=== PATIENT | female | born 1945 | race Caucasian/White ===

== ENCOUNTER 2016-10-13 08:46 | Outpatient (CLI) | payer MEDICARE ==
[2016-03-16 19:53] VITALS: BP 121/69
== END 2016-10-13 08:47 ==
LOC: OUT 08:46
PROVIDERS: ATTEND Colon & Rectal Surgery
DX: R10.9 Unspecified abdominal pain (principal)
CPT/HCPCS: 99213; G0463

== ENCOUNTER 2016-12-01 13:03 | Outpatient (CLI) | payer MEDICARE ==
[2016-03-16 19:53] VITALS: BP 121/69
--- NOTE | 2016-12-01 18:57 | Diagnostic Imaging Report ---
BIBI MADERA [facility] [address] [facility] [address] [place] [address]. [address] Report Submission Date: Dec 01, 2016 3:31:03 PM CDT Patient Study Name: TIMOTHY LOCKETT Date: Dec 01, 2016 1:15:05 PM CDT Modality Type: CR Gender: F Description: LOWER EXTREMITY : 41 Institution: [facility] Physician: BIBI MADERA AP and lateral views of both knees- 5 total views History: BILATERAL KNEES, PAIN, HX OF ARTHRITIS, HAS BEEN GETTING INJECTIONS IN KNEE X4 YEARS Findings: No similar comparison studies Right knee: Tricompartmental degenerative changes with narrowing of the medial joint space, no suprapatellar effusion Left knee: There is tricompartmental degenerative change with narrowing of the medial knee joint space, no suprapatellar effusion Impression: Advanced bilateral knee tricompartmental degenerative change, no suprapatellar effusion Electronically signed on Dec 01, 2016 3:31:03 PM CDT by: Radha MAYS
== END 2016-12-01 13:04 ==
LOC: RAD 13:03
PROVIDERS: ATTEND Family Medicine
DX: M25.569 Pain in unspecified knee (principal)

== ENCOUNTER 2016-12-12 13:50 | Outpatient (CLI) | payer MEDICARE ==
[2016-03-16 19:53] VITALS: BP 121/69
== END 2016-12-12 13:52 ==
LOC: LAB 13:50
PROVIDERS: ATTEND Family Medicine
DX: R30.0 Dysuria (principal)
CPT/HCPCS: 87086

== ENCOUNTER 2017-02-13 10:59 | Outpatient (CLI) | payer MEDICARE ==
[2016-03-16 19:53] VITALS: BP 121/69
[2017-02-13 11:12] LABS: BASOPHILS % 0.7 (0.0-1.5); EOSINOPHILS % 0.5 % (0.0-6.8); MEAN CORPUSCULAR HEMOGLOBIN 30.3 pg (28.0-34.0); MEAN CORPUSCULAR VOLUME 87.6 fl (80.0-100.0); MONOCYTES % 3.2 % (0.0-11.0); NEUTROPHILS # 4.4 # k/uL (1.4-7.7)
[2017-02-13 11:38] LABS: eGFR (African) > 60; eGFR (Non-African) > 60
== END 2017-02-13 11:00 ==
LOC: LAB 10:59
PROVIDERS: ATTEND Family Medicine
DX: E55.9 Vitamin D deficiency, unspecified (principal); R53.83 Other fatigue; M79.1 Myalgia; R73.9 Hyperglycemia, unspecified
CPT/HCPCS: 36415; 80053; 82306; 82550; 83036; 84443; 85025; 85651

== ENCOUNTER 2017-03-24 13:18 | Outpatient (CLI) | payer MEDICARE ==
[2016-03-16 19:53] VITALS: BP 121/69
== END 2017-03-24 13:20 ==
LOC: LABRHC 13:18
PROVIDERS: ATTEND Physician Assistant
DX: Z53.9 Procedure and treatment not carried out, unspecified reason (principal)

== ENCOUNTER 2017-05-09 10:47 | Outpatient (CLI) | payer MEDICARE ==
[2016-03-16 19:53] VITALS: BP 121/69
[2017-05-09 11:11] LABS: BASOPHILS % 0.9 (0.0-1.5); MEAN CORPUSCULAR HEMOGLOBIN 29.4 pg (28.0-34.0); MEAN CORPUSCULAR VOLUME 85.7 fl (80.0-100.0); MONOCYTES % 4.8 % (0.0-11.0); NEUTROPHILS # 4.3 # k/uL (1.4-7.7)
[2017-05-09 11:32] LABS: eGFR (African) > 60; eGFR (Non-African) > 60
--- NOTE | 2017-05-09 15:37 | Diagnostic Imaging Report ---
BIBI MADERA [facility] [address] [facility] [address] [address] Report Submission Date: May 09, 2017 1:05:08 PM CDT Patient Study Name: TIMOTHY LOCKETT Date: May 09, 2017 11:29:08 AM CDT Modality Type: CR Gender: F Description: SPINE : 41 Institution: [facility] Physician: BIBI MADERA Sacrum and coccyx 3 views Clinical history: Low back pain No visible fracture, dislocation or bone destruction. Impression: Normal sacrum and coccyx Electronically signed on May 09, 2017 1:05:08 PM CDT by: Franklin MAYS
--- NOTE | 2017-05-09 15:38 | Diagnostic Imaging Report ---
BIBI MADERA [facility] [address] [facility] [address] [address] Report Submission Date: May 09, 2017 1:10:17 PM CDT Patient Study Name: TIMOTHY LOCKETT Date: May 09, 2017 11:27:43 AM CDT Modality Type: CR Gender: F Description: SPINE : 41 Institution: [facility] Physician: BIBI MADERA Lumbar spine 3 views Clinical history: Low back pain Mild to moderate osteoarthrosis of the lumbar spine with grade I anterior spondylolisthesis of L4/L5 with degenerative disc and L5/S1. No visible fracture, dislocation or bone destruction. Mild levoscoliosis is noted. Impression: Moderate osteoarthrosis of the lumbar spine with degenerative disc and L5/S1 . Grade I anterior spondylolisthesis of L4/L5 . Levoscoliosis without visible fractures Electronically signed on May 09, 2017 1:10:17 PM CDT by: Franklin MAYS
--- NOTE | 2017-05-09 15:39 | Diagnostic Imaging Report ---
BIBI MADERA [facility] [address] [facility] [address] [address] Report Submission Date: May 09, 2017 1:04:29 PM CDT Patient Study Name: TIMOTHY LOCKETT Date: May 09, 2017 11:21:43 AM CDT Modality Type: CR Gender: F Description: CHEST : 41 Institution: [facility] Physician: BIBI MADERA Examination: PA and lateral chest. History: Evaluate lung daniels. Comparison exam: None available Findings: PA lateral chest demonstrate a normal cardiac and mediastinal silhouette. Minimal tortuosity of the thoracic aorta. Mildly chronic interstitial pattern. No focal infiltrate. No effusion. No blunting of the costophrenic margins. Osseous structures are appropriate for age. Lateral view demonstrates kyphosis. Impression: Mild chronic changes. No acute pulmonary process. Electronically signed on May 09, 2017 1:04:29 PM CDT by: Rober MAYS
== END 2017-05-09 10:50 ==
LOC: RT 10:47
PROVIDERS: ATTEND Family Medicine
DX: R07.89 Other chest pain (principal); M53.3 Sacrococcygeal disorders, not elsewhere classified; G89.29 Other chronic pain; M54.41 Lumbago with sciatica, right side; M54.42 Lumbago with sciatica, left side; E55.9 Vitamin D deficiency, unspecified
CPT/HCPCS: 36415; 71020; 72100; 72220; 80053; 82306; 82550; 84484; 85025

== ENCOUNTER 2017-05-23 14:01 | Outpatient (CLI) | payer MEDICARE ==
[2016-03-16 19:53] VITALS: BP 121/69
== END 2017-05-23 14:02 ==
LOC: POD 14:01
PROVIDERS: ATTEND Podiatrist
DX: M77.42 Metatarsalgia, left foot (principal); M81.0 Age-related osteoporosis without current pathological fracture
CPT/HCPCS: G0463

== ENCOUNTER 2017-06-26 12:45 | Outpatient (CLI) | payer MEDICARE ==
[2016-03-16 19:53] VITALS: BP 121/69
[~2017-06-26 12:45] MED LIST: 0.9 % SODIUM CHLORIDE PF 10 ML VIAL IJ ONE; Lidocaine 1% 5ml(IM or SUTURE)(PAIN CLINIC) ONE; TRIAMCINOLONE ACETONID 40MG/ML VIAL ONE
--- NOTE | 2017-06-27 12:33 | HISTORY AND PHYSICAL REPORT ---
REFERRING PHYSICIAN: Dr. Scarlett Pantoja: HISTORY OF PRESENT ILLNESS: I had the opportunity of seeing Vasiliy Gillespie today as and outpatient at [facility]. Vasiliy is a delightful 71-year-old white female who presents with back and bilateral lower extremity pain and weakness which began in March of 2017. She says that she has very little symptoms when she is sitting or lying down. She develops back pain and bilateral lower extremity pain with standing and walking. She is limited to about 50 feet. She is 71 and still actively works and is now becoming limited by the symptoms consistent with neurogenic claudication. She rates this pain as severe as 8 over 10 on a visual analog scale and never better than 2 over 10 on a visual analog scale. She takes very little in the way of oral analgesics. PAST MEDICAL HISTORY: 1. Vision problems. 2. Hypertension. 3. Irregular fast heartbeats. 4. Uterine cancer. 5. Anxiety problems. 6. Questionable Parkinson disease. 7. Early stages of macular degeneration. 8. Osteoarthritis. 9. IBS. 10. Low back pain. 11. Chronic left ankle pain. PAST SURGICAL HISTORY: 1. Cholecystectomy. 2. Appendectomy. 3. Colon resection. 4. Hysterectomy. 5. Bilateral cataracts removed and lens implanted. SOCIAL HISTORY: She has been a since 2011. She has 3 children. She lives at home alone. She completed the 12th grade. 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 She is not disabled. FAMILY HISTORY: Father with heart disease. Mother with heart disease, cancer, and thyroid disease. REVIEW OF SYSTEMS: In the last month or so, she reports a hoarse voice, irregular fast heartbeats, stomach pain or upset stomach, constipation, and feeling anxious. Pain is worsened with bending over, getting up from a chair, and in any position for too long, and prolonged sitting, start-up symptoms with walking. Pain is improved with standing and heat. PHYSICAL EXAMINATION: General: This is a well-nourished, well-developed white female in no apparent distress. Vital Signs: BP: 115/80, P: 66, R: 20, oxygen saturation is 98% on room air. General: The patient is well nourished, well developed, and in no apparent distress. Awake, alert, and oriented. HEENT: Pupils are equal, round, and reactive to light and accommodation. Extraocular movements intact. No facial droop. Neck: There is full range of motion of the cervical spine. No evidence of adenopathy. Thyroid is nontender, no enlarged. Carotids are without bruits. Chest: Clear to auscultation bilaterally. Normal chest excursion. Heart: Regular rate and rhythm without murmur. Abdomen: Benign. Normoactive bowel sounds. Motor/sensory: Intact in the upper and lower extremities. Moves all extremities freely. Extremities: Strength is 5/5 and equal in the lower extremities. Negative straight leg raise. Negative femoral nerve stretch. Negative SRIDHAR. Negative assisted extension and extension rotation. DIAGNOSTIC STUDIES: MRI dated May 13, 2017, reveals grade 1 L4-L5 spondylolisthesis with exposed disk material and facet and ligamentum flavum hypertrophy at the L4-L5 level resulting in severe spinal stenosis somewhat worse on the left. There may be a cyst associated with the ligamentum flavum hypertrophy. I see no sequestered disk. ASSESSMENT: Severe L4-L5 spinal stenosis associated with posterior facet ligamentum flavum hypertrophy and grade 1 spondylolisthesis. PLAN: Plan for an L5-S1 epidural steroid injection today under fluoroscopy. cc: Dr. Scarlett MAYS
--- NOTE | 2017-06-27 12:39 | LESI WITH FLUORO ---
OPERATIVE PROCEDURE: Left L5-S1 epidural steroid injection with fluoroscopic guidance. DESCRIPTION OF PROCEDURE: The risks and benefits were discussed with the patient including the risk of infection, bleeding, nerve injury, and headache, as well as the risks of steroid exposure causing hyperglycemia, hypertension, osteoporosis, or increased infectious risks. The patient understood these risks and agreed to proceed. Consent was obtained prior to the procedure. The patient was placed in the prone position on the fluoroscopy table with a pillow underneath the abdomen to afford anterior flexion of the lumbar spine. The low back was cleaned and a sterile drape was applied. An 18-gauge thin wall Tuohy epidural needle was advanced with normal saline loss of resistance technique and direct fluoroscopic guidance with a left paramedian approach at the L5-S1 level. On obtaining loss of resistance to normal saline, it was verified that there was no aspiration of CSF or blood. Furthermore, the needle tip location was verified with lateral and AP fluoroscopic views. Omnipaque 240 myelogram dye were injected through the epidural needle. The distribution of the dye was noted to be within the desired distribution within the lumbar epidural space. The medication was injected into the epidural space. The stylet was replaced in the needle and the needle was removed from the back. The patient tolerated the procedure well. The back was cleaned and a bandage was applied over the injection site. The patient was monitored for 20 minutes following the procedure. During this time, the vital signs remained stable and the patient experienced no adverse sequelae. The patient was discharged in good condition. ASSESSMENT: Severe L4-L5 spinal stenosis associated with posterior facet ligamentum flavum hypertrophy and grade 1 spondylolisthesis. PLAN: Left L5-S1 epidural steroid injection with fluoroscopic guidance today. FOLLOWUP: Return to clinic if problems develop or worsen. cc: Dr. Scarlett MAYS
== END 2017-06-26 12:46 ==
LOC: OUT 12:45
PROVIDERS: ATTEND Anesthesiology Pain Medicine
DX: M48.061 Spinal stenosis, lumbar region without neurogenic claudication (principal); M24.28 Disorder of ligament, vertebrae; M43.16 Spondylolisthesis, lumbar region
CPT/HCPCS: J3301; Q9966; 62323; 99214; G0463

== ENCOUNTER 2017-07-17 16:39 | Outpatient (CLI) | payer MEDICARE ==
[2016-03-16 19:53] VITALS: BP 121/69
[2017-07-17 16:54] LABS: APPEARANCE,URINE Clear (CLEAR); COLOR,URINE Yellow (YELLOW); OCCULT BLOOD,URINE Trace-intact (NEGATIVE); UROBILINOGEN URINE 0.2 Eu (0.2-1.0)
[2017-07-17 17:01] LABS: AMORPHOUS SEDIMENT,UR FEW (NEGATIVE)
== END 2017-07-17 16:50 ==
LOC: LAB 16:39
PROVIDERS: ATTEND Family Medicine
DX: R30.0 Dysuria (principal)
CPT/HCPCS: 81002

== ENCOUNTER 2017-09-11 12:40 | Emergency (ER) | payer MEDICARE ==
--- NOTE | 2017-09-11 12:46 | ED Physician Documentation ---
General Adult - HISTORIAN Historian: patient, child - HPI Stated Complaint: palpatations Chief Complaint: Palpitations Onset: other ("a long time" ) Timing: other (intermittent ) Further Comments: yes (She states she has these feeling that her heart is beating "funny and or fast" she reprots this comes with various times of day but usually when she is hungry, tired and or anxious. She does take lorazepam but she did not know this am if she took her lorazepam or asprin so she did not repeat the med she did not know for sure if she took the med or not. She states she also has low back pain this is chronic and she does see pain managment for this pain but she states her lower back pain is increased today . No loss of control of bowel or bladder.) Last known Well Code/Unknown Code: Unknown - ROS CONST: denies: fever CVS/RESP: denies: chest pain, shortness of breath GI/: denies: none MS/SKIN/LYMPH: denies: none NEURO/PSYCH: anxiety. denies: headache, dizziness - PAST HX Past History: hypertension, other (anxiety ) Surgeries/Procedures: cholecystectomy, other (Colon recection and appy ) Immunizations: referred to PCP Allergies/Adverse Reactions: Allergies Allergy/AdvReac Type Severity Reaction Status Date / Time iodine [Iodine] Allergy Intermediate Verified 09/11/17 13:17 cephalexin monohydrate Allergy Mild Verified 09/11/17 13:17 [From Keflex] codeine phosphate Allergy Mild Verified 09/11/17 13:17 [From Robitussin A-C] guaifenesin Allergy Mild Verified 09/11/17 13:17 [From Robitussin A-C] hydrocortisone Allergy Mild Verified 09/11/17 13:17 [From Cortizone-10] Penicillins Allergy Mild Rash Verified 09/11/17 13:17 Home Medications: Ambulatory Orders Medication Instructions Recorded Carbidopa/Levodopa [Sinemet] 1 each PO TID u2 12/30/14 Aspirin [Adult Low Dose Aspirin EC] 81 mg PO D 03/16/16 Lisinopril [Lisinopril] 2.5 mg PO D 03/16/16 Cholecalciferol [Vitamin D-3] 2,000 unit PO DAILY 09/11/17 - SOCIAL HX Smoking History: non-smoker Alcohol Use: none Drug Use: none - FAMILY HX Family History: No - VITAL SIGNS Vital Signs: Vital Signs Temp Pulse Resp BP Pulse Ox 121/69 03/16/16 19:47 - REVIEWED ASSESSMENTS Nursing Assessment Reviewed: Yes Vitals Reviewed: Yes Progress - Progress Progress: 1355: Discussed results with daughter and pt. She states at times she has pain and referred to her epigastric area. Pain with palpation on that area. She states this has been an issue "forever" . She reports that she is anxious. Discussed she can repeat lorazepam if needed. DG ED Results Lab/Radiology - Radiology Radiology Impressions: Examination: Plain film lumbar spine History: Back discomfort. Findings: 3 views of the lumbar spine demonstrates osteopenia. Osteophytes. No compression deformity. L4/L5 listhesis. L5-S1 disc space narrowing. Facet degenerative changes. Prevertebral surgical clips. Impression: Osteopenia, listhesis, and degenerative changes. No compression deformity. Electronically signed on Sep 11, 2017 1:50:07 PM SU[employer]OR [employer] by: Rober Reyez General Adult Physical Exam - PHYSICAL EXAM GENERAL APPEARANCE: no distress EENT: eye inspection normal RESPIRATORY: no resp distress, chest non-tender, breath sounds normal CVS: reg rate & rhythm, heart sounds normal, equal pulses, no murmur ABDOMEN: soft, normal bowel sounds BACK: normal inspection, no CVA tenderness SKIN: warm/dry, normal color EXTREMITIES: non-tender, normal range of motion, no evidence of injury, no edema NEURO: oriented X3, CN's nml as tested, motor nml Discharge Clincal Impression: Anxiety Referrals: Scarlett Moreno MD [Primary Care Provider] - 2 Days Comments: Follow up with PCP - possible Holter Monitor Continue meds Ranitidine 150 mg BID Return to ER or PCP for any concerning symptoms Condition: Stable Decision to Admit: NO Date of Decison to Admit: 09/11/17 Decision Time: 14:03
[2017-09-11 13:19] LABS: BASOPHILS % 0.4 (0.0-1.5); EOSINOPHILS % 0.4 % (0.0-6.8); MEAN CORPUSCULAR HEMOGLOBIN 31.1 pg (28.0-34.0); MEAN CORPUSCULAR VOLUME 87.7 fl (80.0-100.0); MONOCYTES % 4.9 % (0.0-11.0); NEUTROPHILS # 4.9 # k/uL (1.4-7.7)
[2017-09-11 13:28] LABS: eGFR (African) > 60; eGFR (Non-African) > 60
--- NOTE | 2017-09-11 14:02 | Diagnostic Imaging Report ---
ARIS DAMON [facility] [address] [facility] [address] [address] Report Submission Date: Sep 11, 2017 1:50:07 PM OPTICAL ADVISOR Patient Study Name: TIMOTHY LOCKETT Date: Sep 11, 2017 1:33:04 PM OPTICAL ADVISOR Modality Type: CR Gender: F Description: SPINE : 41 Institution: [facility] Physician: ARIS DAMON Examination: Plain film lumbar spine History: Back discomfort. Findings: 3 views of the lumbar spine demonstrates osteopenia. Osteophytes. No compression deformity. L4/L5 listhesis. L5-S1 disc space narrowing. Facet degenerative changes. Prevertebral surgical clips. Impression: Osteopenia, listhesis, and degenerative changes. No compression deformity. Electronically signed on Sep 11, 2017 1:50:07 PM OPTICAL ADVISOR by: Rober MAYS
[2017-09-11 14:21] VITALS: BP 134/67
== END 2017-09-11 14:20 ==
LOC: ED 12:40
DX: F41.9 Anxiety disorder, unspecified (principal)
CPT/HCPCS: 72100; 80053; 84484; 85025; 99283; S1016

== ENCOUNTER 2017-09-20 08:51 | Outpatient (CLI) | payer MEDICARE ==
--- NOTE | 2017-09-20 11:17 | Diagnostic Imaging Report ---
LEODAN BARRETT [facility] [address] [facility] [address] [address] Report Submission Date: Sep 20, 2017 9:32:23 AM BED MAKER Patient Study Name: TIMOTHY LOCKETT Date: Sep 20, 2017 9:03:22 AM BED MAKER Modality Type: US Gender: F Description: US RETROPERITONEAL LIMIT : 41 Institution: [facility] Physician: LEODAN BARRETT Examination: Ultrasound kidneys History: Renal cyst. Comparison exams: None available. Findings: Right kidney measures 10.3 cm in length. Left kidney measures 10.5 cm in length. Thinned renal cortical margins bilaterally. No evidence for cortical mass. Projecting off the inferior margin of the left kidney is a cystic area measuring 3.3 x 3.0 x 2.3 cm. No hydronephrosis. Impression: Thinned renal cortical margins consistent with age related medical renal disease. No cortical mass or obstruction. Left renal cyst. Electronically signed on Sep 20, 2017 9:32:23 AM BED MAKER by: Rober MAYS
== END 2017-09-20 08:52 ==
LOC: RAD 08:51
PROVIDERS: ATTEND Nurse Practitioner Family
DX: N28.1 Cyst of kidney, acquired (principal)
CPT/HCPCS: 76775

== ENCOUNTER 2017-09-22 11:52 | Outpatient (CLI) | payer MEDICARE | END 2017-09-22 11:53 | LOC: RT 11:52 | PROVIDERS: ATTEND Family Medicine | DX: R00.2 Palpitations (principal) | CPT/HCPCS: 93225 ==

== ENCOUNTER 2017-10-17 14:34 | Outpatient (CLI) | payer MEDICARE | END 2017-10-17 14:35 | LOC: LAB 14:34 | PROVIDERS: ATTEND Obstetrics & Gynecology Gynecologic Oncology | DX: Z85.43 Personal history of malignant neoplasm of ovary (principal) | CPT/HCPCS: 86304 ==

== ENCOUNTER 2017-10-24 09:24 | Outpatient (CLI) | payer MEDICARE ==
[2017-10-24 09:39] LABS: APPEARANCE,URINE Clear (CLEAR); COLOR,URINE Yellow (YELLOW); OCCULT BLOOD,URINE 2+ (NEGATIVE); UROBILINOGEN URINE 0.2 Eu (0.2-1.0)
[2017-10-24 09:48] LABS: AMORPHOUS SEDIMENT,UR FEW (NEGATIVE)
== END 2017-10-24 09:25 ==
LOC: LAB 09:24
PROVIDERS: ATTEND Obstetrics & Gynecology Gynecologic Oncology
DX: R30.0 Dysuria (principal)
CPT/HCPCS: 81002; 87086; 87186

== ENCOUNTER 2017-11-14 13:48 | Inpatient (IN) | payer MEDICARE ==
[2017-11-14 14:14] VITALS: BMI 26.0
[2017-11-14] MEDS ORDERED: HYPROMELLOSE OP PRN (15:52)
[2017-11-14] MEDS ORDERED: BISACODYL 5 MG TABLET.DR PO PRN (15:55)
[2017-11-14] MEDS ORDERED: HYPROMELLOSE OPTH DROPS OP PRN (15:55)
[2017-11-14] MEDS ORDERED: LORazepam 0.5 MG TABLET PO SCH (16:00)
[2017-11-14] MEDS: ENOXAPARIN SODIUM 40 MG/0.4 ML DISP.SYRIN SQ SCH (16:34)
[2017-11-14] MEDS: FAMOTIDINE 20 MG TABLET PO SCH (16:34)
[2017-11-14] MEDS: traMADol HCL 50 MG TABLET PO PRN ×2 (16:34→23:08)
[2017-11-14] MEDS ORDERED: DICYCLOMINE HCL 10 MG PO SCH (17:00)
[2017-11-14] MEDS: ACETAMINOPHEN 325 MG TABLET PO SCH (17:45)
--- NOTE | 2017-11-14 20:34 | History and Physical Report ---
History of Present Illnes - History of Present Illness Reason for Visit: Weakness History of Present Illness: Patient was trying on pants on 11-09-17 when her foot got stuck in the pants and she fell. She suffered a closed fracture of the left superior pubic rami. She was admitted to [facility]. Evaluation by Dr. Boyd in orthopedics and surgery deemed not necessary. Narcotics have caused her to have confusion and hallucination. She is currently using tylenol for pain with tramadol sparingly for breakthrough pain. She was too weak and unable to return home. 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: Other (Parkinsonism - 2017) Gastrointestinal: GERD, Other (Colon polyps) Heme/Onc: Cancer (Uterine 1B) Psych: Anxiety, Depression - Past Surgical History Past Surgical History: Appendectomy, Cholecystectomy, Hysterectomy (with BSO), Other (Colectomy 2003 due to polyps) - Past Family History Mother Family History: CAD, Father Family History: CAD (at 45) - Past Social History Smoke: No Occupation: Works at the [employer] Alcohol: None Drugs: None Lives: Alone () - Health Maintenance Health Maintenance: Influenza Vaccine, Pneumococcal Vaccine, Pap Smear, Mammogram, Colonoscopy, DEXA Influenza Vaccine: Current for this Influenza Season Pneumonia Vaccine: Yes Resuscitation Status: Resusciation Status Resuscitation Status Full Code Review of Systems - Review of Systems Constitutional: Weakness. negative: Fever Eyes: negative: pain ENT: negative: Ear Pain, Nose Congestion Respiratory: negative: Cough Cardiovascular: negative: Chest Pain Gastrointestinal: Constipation. negative: Nausea, Vomiting Genitourinary: negative: Dysuria, Frequency, Incontinence Musculoskeletal: negative: Neck Pain Skin: negative: Rash Neurological: Weakness - Medications/Allergies Allergies/Adverse Reactions: Allergies Allergy/AdvReac Type Severity Reaction Status Date / Time iodine [Iodine] Allergy Intermediate Verified 09/11/17 13:17 cephalexin monohydrate Allergy Mild Verified 09/11/17 13:17 [From Keflex] codeine phosphate Allergy Mild Verified 09/11/17 13:17 [From Robitussin A-C] guaifenesin Allergy Mild Verified 09/11/17 13:17 [From Robitussin A-C] hydrocortisone Allergy Mild Verified 09/11/17 13:17 [From Cortizone-10] Penicillins Allergy Mild Rash Verified 09/11/17 13:17 Sulfa (Sulfonamide Allergy Verified 11/14/17 13:59 Antibiotics) Home Medications: Home Medications Ascorbic Acid [Vitamin C] 1,000 mg PO DAILY 11/14/17 Dicyclomine HCl [Bentyl] 10 mg PO QID 11/14/17 Hypromellose [Genteal] 1 drop OP TID PRN 11/14/17 Tramadol HCl [Ultram] 50 mg PO Q4 PRN 11/14/17 Current Inpatient Medications: Current Inpatient Medications Acetaminophen (Tylenol) 650 mg PO TID [facility] Last Admin: 11/14/17 17:45 Dose: 650 mg Artificial Tears (Nature's Tears Opth Harini) 1 drop OP Q6 PRN PRN Reason: Dry Eye Ascorbic Acid (Vitamin C) 1,000 mg PO DAILY [facility] Aspirin (Ecotrin) 81 mg PO D [facility] Bisacodyl (Dulcolax) 10 mg PO DAILY PRN PRN Reason: Constipation Carbidopa/Levodopa (Sinemet) 1 each PO TID [facility] Last Admin: 11/14/17 17:45 Dose: 1 each Celecoxib (Celebrex) 200 mg PO DAILY [facility] Cholecalciferol (Vitamin D-3) 2,000 unit PO DAILY [facility] Dicyclomine HCl (Bentyl) 10 mg PO Q6 PRN PRN Reason: Abdominal Pain Enoxaparin Sodium (Lovenox) 40 mg SQ QD [facility] Stop: 11/28/17 15:59 Last Admin: 11/14/17 16:34 Dose: 40 mg Famotidine (Pepcid) 20 mg PO 0700 [facility] Last Admin: 11/14/17 16:34 Dose: 20 mg Lisinopril (Prinivil) 2.5 mg PO D [facility] Lorazepam (Ativan) 0.5 mg PO TID PRN PRN Reason: Anxiety Sertraline HCl (Zoloft) 25 mg PO DAILY [facility] Tramadol HCl (Ultram) 50 mg PO Q4 PRN PRN Reason: PAIN Last Admin: 11/14/17 16:34 Dose: 50 mg Exam - Exam Vital Signs: Vital Signs (72 hours) 11/14/17 13:57 Temperature 99.0 F Pulse Rate [ 88 Pulse ox] Respiratory 20 Rate Blood Pressure 109/58 [Right Arm] O2 Sat by Pulse 95 Oximetry General: Alert, Oriented to Person, Oriented to Place, Oriented to Time, Cooperative, No acute distress HEENT: Atraumatic, PERRLA, EOMI, Mouth Mucous membr. moist/Amesti Neck: Normal Range of Motion Lungs: Clear to auscultation, Normal air movement, Speaks full Sentences Cardiovascular: Regular rate Abdomen: Normal bowel sounds, Soft, No tenderness Integumentary: Normal Extremities: No edema, Other (MIld tender L hip ROM.) Neurological: Generalized Weakness Psych/Mental Status: Mental status NL, Mood NL, Appropriate Affect, Intact Judgment Assessment/Plan - Assessment/Plan (1) Weakness Status: Acute Current Visit: Yes Plan: Admit patient for PT/OT. Lovenox to prevent DVT as well as ILAN hose. (2) Fracture of left superior pubic ramus Status: Acute Current Visit: Yes Qualifiers: Encounter type: subsequent encounter Fracture type: closed Fracture healing: with routine healing Qualified Code(s): S32.512D - Fracture of superior rim of left pubis, subsequent encounter for fracture with routine healing Plan: Scheduled tylenol for pain control. Only used tramadol sparingly. Keep bowels working appropriately. (3) HTN (hypertension) Status: Chronic Current Visit: No Qualifiers: Hypertension type: essential hypertension Qualified Code(s): I10 - Essential (primary) hypertension Plan: Stable. (4) Parkinsonism Status: Chronic Current Visit: No Qualifiers: Parkinsonism type: primary Parkinsonism Qualified Code(s): G20 - Parkinson' s disease Plan: Continue Sinemet. (5) Anxiety Status: Chronic Current Visit: No Plan: Stable. VTE Assessment - RISK FACTOR SCORE VTE RISK FACTOR SCORES: AGE OVER 60 YEARS, HIP, PELVIS, OR LEG FX - RISK VTE MODERATE RISK: SCORE OF 2 (RISK PROXIMAL DVT 2-4%) PROPHYAXIS NEEDED
[2017-11-14] MEDS ORDERED: Non-Formulary 1 EACH (Ranitidine Hcl [Ranitidine Hcl] 150 MG) PO SCH (21:00)
[2017-11-15] MEDS: FAMOTIDINE 20 MG TABLET PO SCH (06:15)
[2017-11-15] MEDS: traMADol HCL 50 MG TABLET PO PRN (06:27)
[2017-11-15] MEDS ORDERED: ASCORBIC ACID (VITAMIN C) 500 MG TABLET PO SCH ×2 (09:00)
[2017-11-15] MEDS ORDERED: Non-Formulary 1 EACH (Meloxicam [Meloxicam] 15 MG) PO SCH (09:00)
[2017-11-15] MEDS ORDERED: SERTRALINE HCL 25 MG PO SCH (09:00)
[2017-11-15] MEDS: CHOLECALCIFEROL (VIT D3) 1,000 UNIT TABLET PO SCH (10:04)
[2017-11-15] MEDS: CELECOXIB 100 MG CAPSULE PO SCH (10:05)
[2017-11-15] MEDS: LISINOPRIL 5 MG TABLET PO SCH (10:05)
[2017-11-15] MEDS: ASPIRIN EC 81 MG TABLET.DR PO SCH (10:05)
[2017-11-15] MEDS: ACETAMINOPHEN 325 MG TABLET PO SCH ×3 (10:06→18:43)
[2017-11-15] MEDS: SERTRALINE HCL 50 MG TABLET PO SCH (10:06)
[2017-11-15] MEDS: ENOXAPARIN SODIUM 40 MG/0.4 ML DISP.SYRIN SQ SCH (16:06)
[2017-11-15] MEDS: POLYETHYLENE GLYCOL 3350 17 GM POWD.PACK PO SCH (16:11)
[2017-11-15] MEDS ORDERED: PHARMACY KEY 1 EACH EACH MC ONE (18:43)
[2017-11-16] MEDS: traMADol HCL 50 MG TABLET PO PRN (00:29)
[2017-11-16] MEDS: FAMOTIDINE 20 MG TABLET PO SCH (05:37)
[2017-11-16] MEDS: LISINOPRIL 5 MG TABLET PO SCH (08:34)
[2017-11-16] MEDS: ASPIRIN EC 81 MG TABLET.DR PO SCH (08:35)
[2017-11-16] MEDS: CHOLECALCIFEROL (VIT D3) 1,000 UNIT TABLET PO SCH (08:35)
[2017-11-16] MEDS: CELECOXIB 100 MG CAPSULE PO SCH (08:36)
[2017-11-16] MEDS: SERTRALINE HCL 50 MG TABLET PO SCH (08:36)
[2017-11-16] MEDS: ACETAMINOPHEN 325 MG TABLET PO SCH ×3 (08:40→17:06)
[2017-11-16] MEDS: POLYETHYLENE GLYCOL 3350 17 GM POWD.PACK PO SCH (11:39)
[2017-11-16] MEDS: ENOXAPARIN SODIUM 40 MG/0.4 ML DISP.SYRIN SQ SCH (15:10)
[2017-11-17] MEDS: LORazepam 0.5 MG TABLET PO PRN (02:51)
[2017-11-17] MEDS: traMADol HCL 50 MG TABLET PO PRN ×2 (03:25→21:26)
[2017-11-17] MEDS: FAMOTIDINE 20 MG TABLET PO SCH (10:38)
[2017-11-17] MEDS: POLYETHYLENE GLYCOL 3350 17 GM POWD.PACK PO SCH (10:38)
[2017-11-17] MEDS: CELECOXIB 100 MG CAPSULE PO SCH (10:39)
[2017-11-17] MEDS: LISINOPRIL 5 MG TABLET PO SCH (10:40)
[2017-11-17] MEDS: ASPIRIN EC 81 MG TABLET.DR PO SCH (10:40)
[2017-11-17] MEDS: CHOLECALCIFEROL (VIT D3) 1,000 UNIT TABLET PO SCH (10:42)
[2017-11-17] MEDS: SERTRALINE HCL 50 MG TABLET PO SCH (10:42)
[2017-11-17] MEDS: ACETAMINOPHEN 325 MG TABLET PO SCH ×3 (10:47→18:15)
[2017-11-17] MEDS: ENOXAPARIN SODIUM 40 MG/0.4 ML DISP.SYRIN SQ SCH (15:48)
[2017-11-18] MEDS: FAMOTIDINE 20 MG TABLET PO SCH (06:03)
[2017-11-18] MEDS: traMADol HCL 50 MG TABLET PO PRN ×2 (06:27→20:45)
[2017-11-18] MEDS: ASPIRIN EC 81 MG TABLET.DR PO SCH (09:56)
[2017-11-18] MEDS: CELECOXIB 100 MG CAPSULE PO SCH (09:56)
[2017-11-18] MEDS: LISINOPRIL 5 MG TABLET PO SCH (09:56)
[2017-11-18] MEDS: CHOLECALCIFEROL (VIT D3) 1,000 UNIT TABLET PO SCH (09:57)
[2017-11-18] MEDS: ACETAMINOPHEN 325 MG TABLET PO SCH ×3 (09:57→17:57)
[2017-11-18] MEDS: SERTRALINE HCL 50 MG TABLET PO SCH (09:58)
[2017-11-18] MEDS: POLYETHYLENE GLYCOL 3350 17 GM POWD.PACK PO SCH (13:05)
[2017-11-18] MEDS: ENOXAPARIN SODIUM 40 MG/0.4 ML DISP.SYRIN SQ SCH (17:57)
[2017-11-19] MEDS: traMADol HCL 50 MG TABLET PO PRN ×3 (00:42→21:30)
[2017-11-19] MEDS: FAMOTIDINE 20 MG TABLET PO SCH (06:01)
[2017-11-19] MEDS: CELECOXIB 100 MG CAPSULE PO SCH (08:47)
[2017-11-19] MEDS: ASPIRIN EC 81 MG TABLET.DR PO SCH (08:47)
[2017-11-19] MEDS: LISINOPRIL 5 MG TABLET PO SCH (08:47)
[2017-11-19] MEDS: CHOLECALCIFEROL (VIT D3) 1,000 UNIT TABLET PO SCH (08:49)
[2017-11-19] MEDS: ACETAMINOPHEN 325 MG TABLET PO SCH ×3 (08:53→18:36)
[2017-11-19] MEDS: SERTRALINE HCL 50 MG TABLET PO SCH (08:53)
[2017-11-19] MEDS: POLYETHYLENE GLYCOL 3350 17 GM POWD.PACK PO SCH (13:47)
[2017-11-19] MEDS: ENOXAPARIN SODIUM 40 MG/0.4 ML DISP.SYRIN SQ SCH (18:36)
[2017-11-20] MEDS: traMADol HCL 50 MG TABLET PO PRN (02:35)
[2017-11-20] MEDS: FAMOTIDINE 20 MG TABLET PO SCH (05:38)
[2017-11-20] MEDS: CELECOXIB 100 MG CAPSULE PO SCH (09:58)
[2017-11-20] MEDS: ASPIRIN EC 81 MG TABLET.DR PO SCH (09:59)
[2017-11-20] MEDS: ACETAMINOPHEN 325 MG TABLET PO SCH ×3 (10:00→18:26)
[2017-11-20] MEDS: LISINOPRIL 5 MG TABLET PO SCH (10:00)
[2017-11-20] MEDS: CHOLECALCIFEROL (VIT D3) 1,000 UNIT TABLET PO SCH (10:01)
[2017-11-20] MEDS: SERTRALINE HCL 50 MG TABLET PO SCH (10:02)
[2017-11-20] MEDS: POLYETHYLENE GLYCOL 3350 17 GM POWD.PACK PO SCH (10:02)
[2017-11-20] MEDS: DICYCLOMINE HCL 20 MG TABLET PO PRN ×2 (10:16→18:27)
[2017-11-20] MEDS: ENOXAPARIN SODIUM 40 MG/0.4 ML DISP.SYRIN SQ SCH (16:04)
[2017-11-21] MEDS: traMADol HCL 50 MG TABLET PO PRN ×2 (00:22→04:01)
--- NOTE | 2017-11-21 08:00 | Inpatient Progress Note ---
Subjective - Required Recertification Statement I anticipate X number of days because-include discharge plan: 10 - Review of Systems Subjective: Patient feels her pelvic pain is getting worse. Complains a lot to staff about pain and limited in what she will do. Had loose stool yesterday x 2. Objective - Exam Vitals and I&O: Vital Signs Temp 97.7 F 11/20/17 21:00 Pulse 76 11/20/17 21:00 Resp 14 11/20/17 21:00 BP 125/60 11/20/17 21:00 Pulse Ox 94 11/20/17 21:00 Intake & Output 11/20/17 11/20/17 11/21/17 11:59 23:59 11:59 Intake Total 220 1540 200 Balance 220 1540 200 Weight 59.874 kg Intake: Oral 220 1540 200 Other: Voiding Method Toilet Toilet # Voids 1 2 1 # Bowel Movements 0 2 General: Alert, Oriented to Person, Oriented to Place, Oriented to Time, Cooperative, No acute distress Lungs: Clear to auscultation, Normal air movement, Speaks full Sentences Cardiovascular: Regular rate Extremities: Other (Tender R hip; Limited movement of L hip.) Assessment/Plan - Assessment/Plan (1) Weakness Status: Acute Current Visit: Yes (2) Fracture of left superior pubic ramus Status: Acute Current Visit: Yes Qualifiers: Encounter type: subsequent encounter Fracture type: closed Fracture healing: with routine healing Qualified Code(s): S32.512D - Fracture of superior rim of left pubis, subsequent encounter for fracture with routine healing Plan: Repeat xray today. Change tylenol to qid. (3) HTN (hypertension) Status: Chronic Current Visit: No Qualifiers: Hypertension type: essential hypertension Qualified Code(s): I10 - Essential (primary) hypertension (4) Parkinsonism Status: Chronic Current Visit: No Qualifiers: Parkinsonism type: primary Parkinsonism Qualified Code(s): G20 - Parkinson' s disease (5) Anxiety Status: Chronic Current Visit: No
--- NOTE | 2017-11-21 09:46 | Diagnostic Imaging Report ---
BIBI MADERA [facility] [address] [facility] [address] [address] Report Submission Date: Nov 21, 2017 9:02:19 AM CDT Patient Study Name: TIMOTHY LOCKETT Date: Nov 21, 2017 8:38:40 AM CDT Modality Type: DX Gender: F Description: PELVIS : 41 Institution: [facility] Physician: BIBI MADERA Examination: Plain film pelvis History: PUBIC RAMI FX X 2 WEEKS AGO; WORSENING PAIN (Hx) Comparison exams: None provided Findings: Single view of the pelvis demonstrates osteopenia. Fractures involving the medial superior and inferior left pubic rami. Cortical disruption involving the right pubic symphysis. Remaining cortical margins without overt disruption. Articular degenerative changes including sacroiliac joints and lumbar spine. Pelvic surgical clips. Impression: Fractures involving the left superior and inferior rami and right pubic symphysis. Correlate with prior studies, if become available. Electronically signed on Nov 21, 2017 9:02:19 AM CDT by: Rober MAYS
[2017-11-21] MEDS: FAMOTIDINE 20 MG TABLET PO SCH (09:53)
[2017-11-21] MEDS: CELECOXIB 100 MG CAPSULE PO SCH (09:53)
[2017-11-21] MEDS: LISINOPRIL 5 MG TABLET PO SCH (09:54)
[2017-11-21] MEDS: ASPIRIN EC 81 MG TABLET.DR PO SCH (09:54)
[2017-11-21] MEDS: ACETAMINOPHEN 325 MG TABLET PO SCH ×4 (09:55→20:15)
[2017-11-21] MEDS: SERTRALINE HCL 50 MG TABLET PO SCH (09:55)
[2017-11-21] MEDS: CHOLECALCIFEROL (VIT D3) 1,000 UNIT TABLET PO SCH (09:55)
[2017-11-21] MEDS: POLYETHYLENE GLYCOL 3350 17 GM POWD.PACK PO SCH (13:00)
[2017-11-21] MEDS: CYCLOBENZAPRINE HCL 5 MG TABLET PO PRN (13:36)
[2017-11-21] MEDS: ENOXAPARIN SODIUM 40 MG/0.4 ML DISP.SYRIN SQ SCH (17:03)
[2017-11-22] MEDS: traMADol HCL 50 MG TABLET PO PRN ×4 (00:30→21:44)
[2017-11-22] MEDS: FAMOTIDINE 20 MG TABLET PO SCH (05:54)
[2017-11-22] MEDS: ACETAMINOPHEN 325 MG TABLET PO SCH ×4 (09:05→21:43)
[2017-11-22] MEDS: CHOLECALCIFEROL (VIT D3) 1,000 UNIT TABLET PO SCH (09:06)
[2017-11-22] MEDS: LISINOPRIL 5 MG TABLET PO SCH (09:06)
[2017-11-22] MEDS: CELECOXIB 100 MG CAPSULE PO SCH (09:06)
[2017-11-22] MEDS: SERTRALINE HCL 50 MG TABLET PO SCH (09:06)
[2017-11-22] MEDS: ASPIRIN EC 81 MG TABLET.DR PO SCH (09:07)
[2017-11-22] MEDS: POLYETHYLENE GLYCOL 3350 17 GM POWD.PACK PO SCH (10:35)
[2017-11-22] MEDS: CYCLOBENZAPRINE HCL 5 MG TABLET PO PRN ×2 (15:25→21:43)
[2017-11-22] MEDS: ENOXAPARIN SODIUM 40 MG/0.4 ML DISP.SYRIN SQ SCH (17:43)
[2017-11-23] MEDS: traMADol HCL 50 MG TABLET PO PRN ×3 (02:17→15:31)
[2017-11-23] MEDS: CYCLOBENZAPRINE HCL 5 MG TABLET PO PRN ×2 (02:17→08:25)
[2017-11-23] MEDS: FAMOTIDINE 20 MG TABLET PO SCH (06:18)
[2017-11-23] MEDS: ACETAMINOPHEN 325 MG TABLET PO SCH ×4 (08:25→21:45)
[2017-11-23] MEDS: LISINOPRIL 5 MG TABLET PO SCH (08:25)
[2017-11-23] MEDS: SERTRALINE HCL 50 MG TABLET PO SCH (08:26)
[2017-11-23] MEDS: CELECOXIB 100 MG CAPSULE PO SCH (08:26)
[2017-11-23] MEDS: CHOLECALCIFEROL (VIT D3) 1,000 UNIT TABLET PO SCH (08:27)
[2017-11-23] MEDS: ASPIRIN EC 81 MG TABLET.DR PO SCH (08:27)
[2017-11-23] MEDS: POLYETHYLENE GLYCOL 3350 17 GM POWD.PACK PO SCH (11:53)
[2017-11-23] MEDS: ENOXAPARIN SODIUM 40 MG/0.4 ML DISP.SYRIN SQ SCH (15:33)
[2017-11-24] MEDS: traMADol HCL 50 MG TABLET PO PRN ×2 (00:01→06:01)
[2017-11-24] MEDS: CYCLOBENZAPRINE HCL 5 MG TABLET PO PRN ×2 (01:37→07:41)
[2017-11-24] MEDS: FAMOTIDINE 20 MG TABLET PO SCH (06:01)
[2017-11-24] MEDS: LORazepam 0.5 MG TABLET PO PRN (07:40)
[2017-11-24] MEDS: CELECOXIB 100 MG CAPSULE PO SCH (14:15)
[2017-11-24] MEDS: LISINOPRIL 5 MG TABLET PO SCH (14:16)
[2017-11-24] MEDS: SERTRALINE HCL 50 MG TABLET PO SCH (14:16)
[2017-11-24] MEDS: ACETAMINOPHEN 325 MG TABLET PO SCH ×4 (14:16→20:58)
[2017-11-24] MEDS: CHOLECALCIFEROL (VIT D3) 1,000 UNIT TABLET PO SCH (14:16)
[2017-11-24] MEDS: ASPIRIN EC 81 MG TABLET.DR PO SCH (14:16)
[2017-11-24] MEDS: POLYETHYLENE GLYCOL 3350 17 GM POWD.PACK PO SCH (14:17)
[2017-11-24] MEDS: ENOXAPARIN SODIUM 40 MG/0.4 ML DISP.SYRIN SQ SCH (18:17)
[2017-11-25] MEDS: traMADol HCL 50 MG TABLET PO PRN (03:52)
[2017-11-25] MEDS: CYCLOBENZAPRINE HCL 5 MG TABLET PO PRN (03:52)
[2017-11-25] MEDS: FAMOTIDINE 20 MG TABLET PO SCH (07:49)
--- NOTE | 2017-11-25 08:23 | Inpatient Progress Note ---
Subjective - Required Recertification Statement I anticipate X number of days because-include discharge plan: 20 - Review of Systems Subjective: Patient was seen by Trauma Ortho at [facility] yesterday. No surgery recommended. Objective - Exam Vitals and I&O: Vital Signs Temp 98.1 F 11/24/17 21:00 Pulse 92 H 11/24/17 21:00 Resp 20 11/24/17 21:00 BP 130/64 11/24/17 21:00 Pulse Ox 92 11/24/17 21:00 Intake & Output 11/24/17 11/24/17 11/25/17 11:59 23:59 11:59 Intake Total 240 440 Output Total 0 Balance 240 440 Intake: Oral 240 440 Output: Urine 0 Other: Voiding Method Toilet # Voids 4 1 2 # Bowel Movements 0 General: Alert, Oriented to Person, Oriented to Place, Oriented to Time, Cooperative, Mild distress Lungs: Clear to auscultation, Normal air movement Cardiovascular: Regular rate Assessment/Plan - Assessment/Plan (1) Weakness Status: Acute Current Visit: Yes (2) Fracture of left superior pubic ramus Status: Acute Current Visit: Yes Qualifiers: Encounter type: subsequent encounter Fracture type: closed Fracture healing: with routine healing Qualified Code(s): S32.512D - Fracture of superior rim of left pubis, subsequent encounter for fracture with routine healing (3) HTN (hypertension) Status: Chronic Current Visit: No Qualifiers: Hypertension type: essential hypertension Qualified Code(s): I10 - Essential (primary) hypertension (4) Parkinsonism Status: Chronic Current Visit: No Qualifiers: Parkinsonism type: primary Parkinsonism Qualified Code(s): G20 - Parkinson' s disease (5) Anxiety Status: Chronic Current Visit: No (6) Fracture of right superior pubic ramus Status: Acute Current Visit: Yes (7) Fracture of left inferior pubic ramus Status: Acute Current Visit: Yes Qualifiers: Encounter type: subsequent encounter Fracture type: closed Fracture healing: with nonunion Qualified Code(s): S32.592K - Other specified fracture of left pubis, subsequent encounter for fracture with nonunion Plan: WBAT with gaitbelt and standby assist. [place] [address] units weekly. REcheck Vit D in 8 weeks. Calcium 600 mg bid.
[2017-11-25] MEDS: SERTRALINE HCL 50 MG TABLET PO SCH (09:45)
[2017-11-25] MEDS: LISINOPRIL 5 MG TABLET PO SCH (09:45)
[2017-11-25] MEDS: ASPIRIN EC 81 MG TABLET.DR PO SCH (09:45)
[2017-11-25] MEDS: ERGOCALCIFEROL (VITAMIN D2) 50,000 UNIT CAPSULE PO SCH ×2 (09:46→09:49)
[2017-11-25] MEDS: ACETAMINOPHEN 325 MG TABLET PO SCH ×4 (09:47→21:36)
[2017-11-25] MEDS: CELECOXIB 100 MG CAPSULE PO SCH (09:47)
[2017-11-25] MEDS: CALCIUM CARB 600MG/VIT D-3 400 1 EACH TABLET PO SCH ×2 (09:50→21:33)
[2017-11-25] MEDS: POLYETHYLENE GLYCOL 3350 17 GM POWD.PACK PO SCH (11:13)
[2017-11-25] MEDS: ENOXAPARIN SODIUM 40 MG/0.4 ML DISP.SYRIN SQ SCH (17:31)
[2017-11-26] MEDS: CYCLOBENZAPRINE HCL 5 MG TABLET PO PRN ×3 (01:54→20:38)
[2017-11-26] MEDS: traMADol HCL 50 MG TABLET PO PRN ×3 (04:04→16:14)
[2017-11-26] MEDS: FAMOTIDINE 20 MG TABLET PO SCH (06:01)
[2017-11-26] MEDS: SERTRALINE HCL 50 MG TABLET PO SCH (08:50)
[2017-11-26] MEDS: CELECOXIB 100 MG CAPSULE PO SCH (08:51)
[2017-11-26] MEDS: ASPIRIN EC 81 MG TABLET.DR PO SCH (08:51)
[2017-11-26] MEDS: LISINOPRIL 5 MG TABLET PO SCH (08:51)
[2017-11-26] MEDS: CALCIUM CARB 600MG/VIT D-3 400 1 EACH TABLET PO SCH ×2 (08:53→20:36)
[2017-11-26] MEDS: ACETAMINOPHEN 325 MG TABLET PO SCH ×4 (10:22→20:36)
[2017-11-26] MEDS: POLYETHYLENE GLYCOL 3350 17 GM POWD.PACK PO SCH (10:23)
[2017-11-26] MEDS: ENOXAPARIN SODIUM 40 MG/0.4 ML DISP.SYRIN SQ SCH (16:14)
[2017-11-27] MEDS: traMADol HCL 50 MG TABLET PO PRN ×3 (00:27→20:00)
[2017-11-27] MEDS: LORazepam 0.5 MG TABLET PO PRN ×2 (00:27→20:00)
[2017-11-27] MEDS: FAMOTIDINE 20 MG TABLET PO SCH (05:50)
[2017-11-27] MEDS: CYCLOBENZAPRINE HCL 5 MG TABLET PO PRN ×2 (05:56→17:40)
[2017-11-27] MEDS: ASPIRIN EC 81 MG TABLET.DR PO SCH (09:23)
[2017-11-27] MEDS: CELECOXIB 100 MG CAPSULE PO SCH (09:23)
[2017-11-27] MEDS: LISINOPRIL 5 MG TABLET PO SCH (09:23)
[2017-11-27] MEDS: SERTRALINE HCL 50 MG TABLET PO SCH (09:23)
[2017-11-27] MEDS: ACETAMINOPHEN 325 MG TABLET PO SCH ×4 (09:32→19:58)
[2017-11-27] MEDS: CALCIUM/VIT D 500MG/200IU TABLET PO SCH ×2 (09:32→19:58)
[2017-11-27] MEDS: POLYETHYLENE GLYCOL 3350 17 GM POWD.PACK PO SCH (11:02)
[2017-11-27] MEDS: ENOXAPARIN SODIUM 40 MG/0.4 ML DISP.SYRIN SQ SCH (15:55)
[2017-11-28] MEDS: LORazepam 0.5 MG TABLET PO PRN (01:33)
[2017-11-28] MEDS: FAMOTIDINE 20 MG TABLET PO SCH (05:14)
[2017-11-28] MEDS: CYCLOBENZAPRINE HCL 5 MG TABLET PO PRN ×2 (05:15→15:41)
[2017-11-28] MEDS: traMADol HCL 50 MG TABLET PO PRN (07:55)
[2017-11-28] MEDS: CALCIUM/VIT D 500MG/200IU TABLET PO SCH ×2 (09:49→20:59)
[2017-11-28] MEDS: ACETAMINOPHEN 325 MG TABLET PO SCH ×4 (09:49→20:59)
[2017-11-28] MEDS: CELECOXIB 100 MG CAPSULE PO SCH (09:49)
[2017-11-28] MEDS: LISINOPRIL 5 MG TABLET PO SCH (09:50)
[2017-11-28] MEDS: SERTRALINE HCL 50 MG TABLET PO SCH (09:50)
[2017-11-28] MEDS: ASPIRIN EC 81 MG TABLET.DR PO SCH (09:50)
[2017-11-28] MEDS: POLYETHYLENE GLYCOL 3350 17 GM POWD.PACK PO SCH (10:11)
[2017-11-29] MEDS: CYCLOBENZAPRINE HCL 5 MG TABLET PO PRN (02:50)
[2017-11-29] MEDS: traMADol HCL 50 MG TABLET PO PRN (02:50)
[2017-11-29] MEDS: LORazepam 0.5 MG TABLET PO PRN (04:00)
[2017-11-29] MEDS: FAMOTIDINE 20 MG TABLET PO SCH (06:51)
[2017-11-29] MEDS: ASPIRIN EC 81 MG TABLET.DR PO SCH (09:48)
[2017-11-29] MEDS: CELECOXIB 100 MG CAPSULE PO SCH (09:48)
[2017-11-29] MEDS: ACETAMINOPHEN 325 MG TABLET PO SCH ×4 (09:50→19:41)
[2017-11-29] MEDS: LISINOPRIL 5 MG TABLET PO SCH (09:50)
[2017-11-29] MEDS: SERTRALINE HCL 50 MG TABLET PO SCH (09:51)
[2017-11-29] MEDS: CALCIUM/VIT D 500MG/200IU TABLET PO SCH ×2 (09:55→19:41)
[2017-11-29] MEDS: POLYETHYLENE GLYCOL 3350 17 GM POWD.PACK PO SCH (13:07)
--- NOTE | 2017-11-29 19:15 | Inpatient Progress Note ---
Subjective - Required Recertification Statement I anticipate X number of days because-include discharge plan: 10 - Review of Systems Subjective: Patient doing ok. Has quite a bit of pain but she is dealing well. Objective - Exam Vitals and I&O: Vital Signs Temp 98 F 11/29/17 09:00 Pulse 87 11/29/17 09:00 Resp 18 11/29/17 09:00 BP 117/65 11/29/17 09:00 Pulse Ox 98 11/29/17 09:00 Intake & Output 11/28/17 11/29/17 11/29/17 23:59 11:59 23:59 Intake Total 1020 360 960 Balance 1020 360 960 Weight 60 kg Intake: Oral 1020 360 960 Other: Voiding Method Toilet Toilet # Voids 2 3 6 # Bowel Movements 1 General: Alert, Oriented to Person, Oriented to Place, Oriented to Time, Cooperative, No acute distress Lungs: Clear to auscultation, Normal air movement, Speaks full Sentences Cardiovascular: Regular rate Assessment/Plan - Assessment/Plan (1) Weakness Status: Acute Current Visit: Yes Plan: Cont. PT/OT. Work on pain control with topical measures. (2) Fracture of left superior pubic ramus Status: Acute Current Visit: Yes Qualifiers: Encounter type: subsequent encounter Fracture type: closed Fracture healing: with routine healing Qualified Code(s): S32.512D - Fracture of superior rim of left pubis, subsequent encounter for fracture with routine healing (3) HTN (hypertension) Status: Chronic Current Visit: No Qualifiers: Hypertension type: essential hypertension Qualified Code(s): I10 - Essential (primary) hypertension (4) Parkinsonism Status: Chronic Current Visit: No Qualifiers: Parkinsonism type: primary Parkinsonism Qualified Code(s): G20 - Parkinson' s disease (5) Anxiety Status: Chronic Current Visit: No (6) Fracture of right superior pubic ramus Status: Acute Current Visit: Yes (7) Fracture of left inferior pubic ramus Status: Acute Current Visit: Yes Qualifiers: Encounter type: subsequent encounter Fracture type: closed Fracture healing: with nonunion Qualified Code(s): S32.592K - Other specified fracture of left pubis, subsequent encounter for fracture with nonunion
[2017-11-30] MEDS: traMADol HCL 50 MG TABLET PO PRN ×4 (00:37→20:32)
[2017-11-30] MEDS: CYCLOBENZAPRINE HCL 5 MG TABLET PO PRN ×2 (01:41→20:33)
[2017-11-30] MEDS: FAMOTIDINE 20 MG TABLET PO SCH (05:44)
[2017-11-30] MEDS: ASPIRIN EC 81 MG TABLET.DR PO SCH (08:59)
[2017-11-30] MEDS: CELECOXIB 100 MG CAPSULE PO SCH (08:59)
[2017-11-30] MEDS: LISINOPRIL 5 MG TABLET PO SCH (09:00)
[2017-11-30] MEDS: ACETAMINOPHEN 325 MG TABLET PO SCH ×4 (09:01→20:32)
[2017-11-30] MEDS: SERTRALINE HCL 50 MG TABLET PO SCH (09:01)
[2017-11-30] MEDS: CALCIUM/VIT D 500MG/200IU TABLET PO SCH ×2 (09:02→20:33)
[2017-11-30] MEDS: POLYETHYLENE GLYCOL 3350 17 GM POWD.PACK PO SCH (09:03)
[2017-12-01] MEDS: CYCLOBENZAPRINE HCL 5 MG TABLET PO PRN ×2 (00:42→20:15)
[2017-12-01] MEDS: traMADol HCL 50 MG TABLET PO PRN (04:00)
[2017-12-01] MEDS: FAMOTIDINE 20 MG TABLET PO SCH (06:12)
[2017-12-01] MEDS: CELECOXIB 100 MG CAPSULE PO SCH (09:48)
[2017-12-01] MEDS: ASPIRIN EC 81 MG TABLET.DR PO SCH (09:49)
[2017-12-01] MEDS: LISINOPRIL 5 MG TABLET PO SCH (09:49)
[2017-12-01] MEDS: CALCIUM/VIT D 500MG/200IU TABLET PO SCH ×2 (09:49→20:13)
[2017-12-01] MEDS: ACETAMINOPHEN 325 MG TABLET PO SCH ×4 (09:50→20:13)
[2017-12-01] MEDS: SERTRALINE HCL 50 MG TABLET PO SCH (09:51)
[2017-12-01] MEDS: POLYETHYLENE GLYCOL 3350 17 GM POWD.PACK PO SCH (14:00)
[2017-12-02] MEDS: traMADol HCL 50 MG TABLET PO PRN ×3 (00:17→10:11)
[2017-12-02] MEDS: CYCLOBENZAPRINE HCL 5 MG TABLET PO PRN ×2 (03:13→20:33)
[2017-12-02] MEDS: FAMOTIDINE 20 MG TABLET PO SCH (06:48)
[2017-12-02] MEDS: CALCIUM/VIT D 500MG/200IU TABLET PO SCH ×2 (08:30→20:33)
[2017-12-02] MEDS: LISINOPRIL 5 MG TABLET PO SCH (08:30)
[2017-12-02] MEDS: CELECOXIB 100 MG CAPSULE PO SCH (08:30)
[2017-12-02] MEDS: ASPIRIN EC 81 MG TABLET.DR PO SCH (08:30)
[2017-12-02] MEDS: ACETAMINOPHEN 325 MG TABLET PO SCH ×4 (08:32→20:33)
[2017-12-02] MEDS: SERTRALINE HCL 50 MG TABLET PO SCH (08:32)
[2017-12-02] MEDS: ERGOCALCIFEROL (VITAMIN D2) 50,000 UNIT CAPSULE PO SCH (08:37)
[2017-12-02] MEDS: POLYETHYLENE GLYCOL 3350 17 GM POWD.PACK PO SCH (12:22)
[2017-12-03] MEDS: traMADol HCL 50 MG TABLET PO PRN ×2 (02:39→07:44)
[2017-12-03] MEDS: CYCLOBENZAPRINE HCL 5 MG TABLET PO PRN (03:59)
[2017-12-03] MEDS: FAMOTIDINE 20 MG TABLET PO SCH (06:16)
[2017-12-03] MEDS: ASPIRIN EC 81 MG TABLET.DR PO SCH (09:36)
[2017-12-03] MEDS: CALCIUM/VIT D 500MG/200IU TABLET PO SCH ×2 (09:36→20:08)
[2017-12-03] MEDS: CELECOXIB 100 MG CAPSULE PO SCH (09:36)
[2017-12-03] MEDS: LISINOPRIL 5 MG TABLET PO SCH (09:37)
[2017-12-03] MEDS: ACETAMINOPHEN 325 MG TABLET PO SCH ×4 (09:38→20:08)
[2017-12-03] MEDS: SERTRALINE HCL 50 MG TABLET PO SCH (09:38)
[2017-12-03] MEDS: POLYETHYLENE GLYCOL 3350 17 GM POWD.PACK PO SCH (11:57)
[2017-12-04] MEDS: CYCLOBENZAPRINE HCL 5 MG TABLET PO PRN (00:48)
[2017-12-04] MEDS: traMADol HCL 50 MG TABLET PO PRN ×3 (03:24→20:06)
[2017-12-04] MEDS: FAMOTIDINE 20 MG TABLET PO SCH (05:56)
[2017-12-04] MEDS: ASPIRIN EC 81 MG TABLET.DR PO SCH (09:32)
[2017-12-04] MEDS: CELECOXIB 100 MG CAPSULE PO SCH (09:32)
[2017-12-04] MEDS: CALCIUM/VIT D 500MG/200IU TABLET PO SCH ×2 (09:32→20:06)
[2017-12-04] MEDS: LISINOPRIL 5 MG TABLET PO SCH (09:32)
[2017-12-04] MEDS: SERTRALINE HCL 50 MG TABLET PO SCH (09:34)
[2017-12-04] MEDS: ACETAMINOPHEN 325 MG TABLET PO SCH ×4 (09:36→20:06)
[2017-12-04] MEDS: POLYETHYLENE GLYCOL 3350 17 GM POWD.PACK PO SCH (11:27)
[2017-12-05] MEDS: CYCLOBENZAPRINE HCL 5 MG TABLET PO PRN ×2 (04:00→13:44)
[2017-12-05] MEDS: traMADol HCL 50 MG TABLET PO PRN (05:12)
[2017-12-05] MEDS: FAMOTIDINE 20 MG TABLET PO SCH (05:55)
--- NOTE | 2017-12-05 07:37 | Inpatient Progress Note ---
Subjective - Required Recertification Statement I anticipate X number of days because-include discharge plan: 10 - Review of Systems Subjective: Staff worried about patient frequently being tearful. She reports she would sleep all day if she could. Wants to be out doing things rather than being in a hospital. She spent a lot of time in a hospital with her before he . Objective - Exam Vitals and I&O: Vital Signs Temp 98.0 F 12/04/17 21:00 Pulse 87 12/04/17 21:00 Resp 18 12/04/17 21:00 BP 124/68 12/04/17 21:00 Pulse Ox 98 12/04/17 21:00 Intake & Output 12/04/17 12/04/17 12/05/17 11:59 23:59 11:59 Intake Total 120 1330 Balance 120 1330 Weight 58.967 kg 58.967 kg Intake: Oral 120 1330 Other: Voiding Method Toilet Toilet # Voids 3 1 1 General: Alert, Oriented to Person, Oriented to Place, Oriented to Time, Cooperative, No acute distress Lungs: Clear to auscultation, Normal air movement, Speaks full Sentences Cardiovascular: Regular rate Assessment/Plan - Assessment/Plan (1) Weakness Status: Acute Current Visit: Yes (2) Fracture of left superior pubic ramus Status: Acute Current Visit: Yes Qualifiers: Encounter type: subsequent encounter Fracture type: closed Fracture healing: with routine healing Qualified Code(s): S32.512D - Fracture of superior rim of left pubis, subsequent encounter for fracture with routine healing (3) HTN (hypertension) Status: Chronic Current Visit: No Qualifiers: Hypertension type: essential hypertension Qualified Code(s): I10 - Essential (primary) hypertension (4) Parkinsonism Status: Chronic Current Visit: No Qualifiers: Parkinsonism type: primary Parkinsonism Qualified Code(s): G20 - Parkinson' s disease (5) Anxiety Status: Chronic Current Visit: No Plan: Depression is worse. Will increase zoloft to 50 mg daily for the short term. (6) Fracture of right superior pubic ramus Status: Acute Current Visit: Yes (7) Fracture of left inferior pubic ramus Status: Acute Current Visit: Yes Qualifiers: Encounter type: subsequent encounter Fracture type: closed Fracture healing: with nonunion Qualified Code(s): S32.592K - Other specified fracture of left pubis, subsequent encounter for fracture with nonunion
[2017-12-05] MEDS: CELECOXIB 100 MG CAPSULE PO SCH (08:50)
[2017-12-05] MEDS: LISINOPRIL 5 MG TABLET PO SCH (08:50)
[2017-12-05] MEDS: ASPIRIN EC 81 MG TABLET.DR PO SCH (08:51)
[2017-12-05] MEDS: SERTRALINE HCL 50 MG TABLET PO SCH (08:51)
[2017-12-05] MEDS: ACETAMINOPHEN 325 MG TABLET PO SCH ×4 (08:51→19:51)
[2017-12-05] MEDS: CALCIUM/VIT D 500MG/200IU TABLET PO SCH ×2 (08:51→19:52)
[2017-12-05] MEDS: POLYETHYLENE GLYCOL 3350 17 GM POWD.PACK PO SCH (10:58)
[2017-12-06] MEDS: traMADol HCL 50 MG TABLET PO PRN ×2 (03:32→08:40)
[2017-12-06] MEDS: FAMOTIDINE 20 MG TABLET PO SCH (04:50)
[2017-12-06] MEDS: CYCLOBENZAPRINE HCL 5 MG TABLET PO PRN ×2 (04:50→20:44)
[2017-12-06] MEDS: ASPIRIN EC 81 MG TABLET.DR PO SCH (08:41)
[2017-12-06] MEDS: CALCIUM/VIT D 500MG/200IU TABLET PO SCH ×2 (08:41→20:43)
[2017-12-06] MEDS: LISINOPRIL 5 MG TABLET PO SCH (08:41)
[2017-12-06] MEDS: SERTRALINE HCL 50 MG TABLET PO SCH (08:42)
[2017-12-06] MEDS: ACETAMINOPHEN 325 MG TABLET PO SCH ×4 (08:42→20:45)
[2017-12-06] MEDS: CELECOXIB 100 MG CAPSULE PO SCH (08:47)
[2017-12-06] MEDS: POLYETHYLENE GLYCOL 3350 17 GM POWD.PACK PO SCH (11:45)
[2017-12-07] MEDS: traMADol HCL 50 MG TABLET PO PRN ×3 (00:30→18:43)
[2017-12-07] MEDS: FAMOTIDINE 20 MG TABLET PO SCH (06:03)
[2017-12-07] MEDS: CELECOXIB 100 MG CAPSULE PO SCH (09:27)
[2017-12-07] MEDS: LISINOPRIL 5 MG TABLET PO SCH (09:28)
[2017-12-07] MEDS: ASPIRIN EC 81 MG TABLET.DR PO SCH (09:28)
[2017-12-07] MEDS: CALCIUM/VIT D 500MG/200IU TABLET PO SCH ×2 (09:28→21:14)
[2017-12-07] MEDS: SERTRALINE HCL 50 MG TABLET PO SCH (09:29)
[2017-12-07] MEDS: ACETAMINOPHEN 325 MG TABLET PO SCH ×4 (09:29→23:10)
[2017-12-07] MEDS: POLYETHYLENE GLYCOL 3350 17 GM POWD.PACK PO SCH (11:25)
[2017-12-07] MEDS: CYCLOBENZAPRINE HCL 5 MG TABLET PO PRN (21:15)
[2017-12-08] MEDS: traMADol HCL 50 MG TABLET PO PRN ×2 (06:09→20:27)
[2017-12-08] MEDS: FAMOTIDINE 20 MG TABLET PO SCH (06:09)
[2017-12-08] MEDS: ACETAMINOPHEN 325 MG TABLET PO SCH ×4 (08:01→20:27)
[2017-12-08] MEDS: CELECOXIB 100 MG CAPSULE PO SCH (08:01)
[2017-12-08] MEDS: CALCIUM/VIT D 500MG/200IU TABLET PO SCH ×2 (08:02→20:27)
[2017-12-08] MEDS: SERTRALINE HCL 50 MG TABLET PO SCH (08:02)
[2017-12-08] MEDS: LISINOPRIL 5 MG TABLET PO SCH (08:02)
[2017-12-08] MEDS: ASPIRIN EC 81 MG TABLET.DR PO SCH (08:04)
[2017-12-08] MEDS: POLYETHYLENE GLYCOL 3350 17 GM POWD.PACK PO SCH (11:31)
[2017-12-09] MEDS: CYCLOBENZAPRINE HCL 5 MG TABLET PO PRN (01:07)
[2017-12-09] MEDS: FAMOTIDINE 20 MG TABLET PO SCH (06:18)
[2017-12-09] MEDS: traMADol HCL 50 MG TABLET PO PRN (06:18)
[2017-12-09] MEDS: CELECOXIB 100 MG CAPSULE PO SCH (08:21)
[2017-12-09] MEDS: ASPIRIN EC 81 MG TABLET.DR PO SCH (08:22)
[2017-12-09] MEDS: ACETAMINOPHEN 325 MG TABLET PO SCH ×4 (08:22→20:12)
[2017-12-09] MEDS: LISINOPRIL 5 MG TABLET PO SCH (08:23)
[2017-12-09] MEDS: CALCIUM/VIT D 500MG/200IU TABLET PO SCH ×2 (08:23→20:12)
[2017-12-09] MEDS: SERTRALINE HCL 50 MG TABLET PO SCH (08:23)
[2017-12-09] MEDS: ERGOCALCIFEROL (VITAMIN D2) 50,000 UNIT CAPSULE PO SCH (08:26)
[2017-12-09] MEDS: POLYETHYLENE GLYCOL 3350 17 GM POWD.PACK PO SCH (11:39)
[2017-12-10] MEDS: CYCLOBENZAPRINE HCL 5 MG TABLET PO PRN (02:27)
[2017-12-10] MEDS: traMADol HCL 50 MG TABLET PO PRN (05:57)
[2017-12-10] MEDS: FAMOTIDINE 20 MG TABLET PO SCH (05:58)
[2017-12-10] MEDS: ASPIRIN EC 81 MG TABLET.DR PO SCH (09:29)
[2017-12-10] MEDS: ACETAMINOPHEN 325 MG TABLET PO SCH ×4 (09:29→20:20)
[2017-12-10] MEDS: CELECOXIB 100 MG CAPSULE PO SCH (09:30)
[2017-12-10] MEDS: LISINOPRIL 5 MG TABLET PO SCH (09:30)
[2017-12-10] MEDS: CALCIUM/VIT D 500MG/200IU TABLET PO SCH ×2 (09:30→20:20)
[2017-12-10] MEDS: SERTRALINE HCL 50 MG TABLET PO SCH (09:30)
[2017-12-10] MEDS: POLYETHYLENE GLYCOL 3350 17 GM POWD.PACK PO SCH (13:16)
[2017-12-11] MEDS: CYCLOBENZAPRINE HCL 5 MG TABLET PO PRN (01:23)
[2017-12-11] MEDS: FAMOTIDINE 20 MG TABLET PO SCH (06:00)
[2017-12-11] MEDS: traMADol HCL 50 MG TABLET PO PRN (06:01)
[2017-12-11] MEDS: LISINOPRIL 5 MG TABLET PO SCH (08:58)
[2017-12-11] MEDS: CALCIUM/VIT D 500MG/200IU TABLET PO SCH ×2 (08:58→20:42)
[2017-12-11] MEDS: ASPIRIN EC 81 MG TABLET.DR PO SCH (08:58)
[2017-12-11] MEDS: ACETAMINOPHEN 325 MG TABLET PO SCH ×4 (09:00→20:41)
[2017-12-11] MEDS: SERTRALINE HCL 50 MG TABLET PO SCH (09:00)
[2017-12-11] MEDS: CELECOXIB 100 MG CAPSULE PO SCH (09:08)
[2017-12-11] MEDS: POLYETHYLENE GLYCOL 3350 17 GM POWD.PACK PO SCH (11:14)
[2017-12-12] MEDS: CYCLOBENZAPRINE HCL 5 MG TABLET PO PRN (01:49)
[2017-12-12] MEDS: FAMOTIDINE 20 MG TABLET PO SCH (06:28)
[2017-12-12] MEDS: traMADol HCL 50 MG TABLET PO PRN (07:53)
[2017-12-12] MEDS: LISINOPRIL 5 MG TABLET PO SCH (09:05)
[2017-12-12] MEDS: ASPIRIN EC 81 MG TABLET.DR PO SCH (09:05)
[2017-12-12] MEDS: CELECOXIB 100 MG CAPSULE PO SCH (09:05)
[2017-12-12] MEDS: ACETAMINOPHEN 325 MG TABLET PO SCH ×4 (09:06→20:21)
[2017-12-12] MEDS: SERTRALINE HCL 50 MG TABLET PO SCH (09:06)
[2017-12-12] MEDS: CALCIUM/VIT D 500MG/200IU TABLET PO SCH ×2 (09:18→20:21)
[2017-12-12] MEDS: POLYETHYLENE GLYCOL 3350 17 GM POWD.PACK PO SCH (11:51)
[2017-12-13] MEDS: traMADol HCL 50 MG TABLET PO PRN (02:07)
[2017-12-13] MEDS: FAMOTIDINE 20 MG TABLET PO SCH (05:59)
[2017-12-13] MEDS: CELECOXIB 100 MG CAPSULE PO SCH (10:18)
[2017-12-13] MEDS: ASPIRIN EC 81 MG TABLET.DR PO SCH (10:19)
[2017-12-13] MEDS: SERTRALINE HCL 50 MG TABLET PO SCH (10:19)
[2017-12-13] MEDS: ACETAMINOPHEN 325 MG TABLET PO SCH ×4 (10:19→20:17)
[2017-12-13] MEDS: LISINOPRIL 5 MG TABLET PO SCH (10:19)
[2017-12-13] MEDS: CALCIUM/VIT D 500MG/200IU TABLET PO SCH ×2 (10:19→20:17)
[2017-12-13] MEDS: POLYETHYLENE GLYCOL 3350 17 GM POWD.PACK PO SCH ×2 (11:36→11:38)
[2017-12-14] MEDS: CYCLOBENZAPRINE HCL 5 MG TABLET PO PRN (02:45)
[2017-12-14] MEDS: FAMOTIDINE 20 MG TABLET PO SCH (06:08)
[2017-12-14] MEDS: ASPIRIN EC 81 MG TABLET.DR PO SCH (10:09)
[2017-12-14] MEDS: CALCIUM/VIT D 500MG/200IU TABLET PO SCH ×2 (10:09→20:15)
[2017-12-14] MEDS: CELECOXIB 100 MG CAPSULE PO SCH (10:09)
[2017-12-14] MEDS: SERTRALINE HCL 50 MG TABLET PO SCH (10:09)
[2017-12-14] MEDS: LISINOPRIL 5 MG TABLET PO SCH (10:09)
[2017-12-14] MEDS: ACETAMINOPHEN 325 MG TABLET PO SCH ×4 (10:10→20:15)
[2017-12-14] MEDS: POLYETHYLENE GLYCOL 3350 17 GM POWD.PACK PO SCH (10:11)
[2017-12-15] MEDS: FAMOTIDINE 20 MG TABLET PO SCH (05:56)
[2017-12-15] MEDS: CELECOXIB 100 MG CAPSULE PO SCH (09:15)
[2017-12-15] MEDS: ASPIRIN EC 81 MG TABLET.DR PO SCH (09:16)
[2017-12-15] MEDS: CALCIUM/VIT D 500MG/200IU TABLET PO SCH ×2 (09:16→20:37)
[2017-12-15] MEDS: LISINOPRIL 5 MG TABLET PO SCH (09:16)
[2017-12-15] MEDS: ACETAMINOPHEN 325 MG TABLET PO SCH ×4 (09:17→20:37)
[2017-12-15] MEDS ORDERED: LORazepam 0.5 MG TABLET PO PRN (09:20)
--- NOTE | 2017-12-15 09:20 | Inpatient Progress Note ---
Subjective - Required Recertification Statement I anticipate X number of days because-include discharge plan: 4 - Review of Systems Subjective: Patient doing ok. Anxious about going home next week. Still tearful. Objective - Exam Vitals and I&O: Vital Signs Temp 98 F 12/14/17 20:43 Pulse 88 12/14/17 21:00 Resp 18 12/14/17 20:43 BP 102/62 12/14/17 20:43 Pulse Ox 93 12/14/17 20:43 Intake & Output 12/14/17 12/14/17 12/15/17 11:59 23:59 11:59 Intake Total 300 1610 120 Balance 300 1610 120 Intake: Oral 300 1610 120 Other: Voiding Method Toilet Toilet # Voids 5 2 3 # Bowel Movements 0 0 General: Alert, Oriented to Person, Oriented to Place, Oriented to Time, Cooperative, No acute distress Lungs: Clear to auscultation, Normal air movement, Speaks full Sentences Assessment/Plan - Assessment/Plan (1) Weakness Status: Acute Current Visit: Yes (2) Fracture of left superior pubic ramus Status: Acute Current Visit: Yes Qualifiers: Encounter type: subsequent encounter Fracture type: closed Fracture healing: with routine healing Qualified Code(s): S32.512D - Fracture of superior rim of left pubis, subsequent encounter for fracture with routine healing Plan: Plan discharge next week. Patient will need to use a wheeled walker when ambulating due the severe nature of the pubic rami fracture, the pain, and her unsteady gait without it. (3) HTN (hypertension) Status: Chronic Current Visit: No Qualifiers: Hypertension type: essential hypertension Qualified Code(s): I10 - Essential (primary) hypertension (4) Parkinsonism Status: Chronic Current Visit: No Qualifiers: Parkinsonism type: primary Parkinsonism Qualified Code(s): G20 - Parkinson' s disease (5) Anxiety Status: Chronic Current Visit: No Plan: Increase zoloft to 75 mg. (6) Fracture of right superior pubic ramus Status: Acute Current Visit: Yes (7) Fracture of left inferior pubic ramus Status: Acute Current Visit: Yes Qualifiers: Encounter type: subsequent encounter Fracture type: closed Fracture healing: with nonunion Qualified Code(s): S32.592K - Other specified fracture of left pubis, subsequent encounter for fracture with nonunion
[2017-12-15] MEDS: SERTRALINE HCL 50 MG TABLET PO SCH (09:21)
[2017-12-15] MEDS: POLYETHYLENE GLYCOL 3350 17 GM POWD.PACK PO SCH (11:30)
[2017-12-16] MEDS: CYCLOBENZAPRINE HCL 5 MG TABLET PO PRN (01:27)
[2017-12-16] MEDS: FAMOTIDINE 20 MG TABLET PO SCH (06:20)
[2017-12-16] MEDS: CALCIUM/VIT D 500MG/200IU TABLET PO SCH ×2 (09:47→20:02)
[2017-12-16] MEDS: LISINOPRIL 5 MG TABLET PO SCH (09:47)
[2017-12-16] MEDS: ASPIRIN EC 81 MG TABLET.DR PO SCH (09:47)
[2017-12-16] MEDS: CELECOXIB 100 MG CAPSULE PO SCH (09:47)
[2017-12-16] MEDS: SERTRALINE HCL 50 MG TABLET PO SCH (09:48)
[2017-12-16] MEDS: ACETAMINOPHEN 325 MG TABLET PO SCH ×4 (09:48→20:02)
[2017-12-16] MEDS: ERGOCALCIFEROL (VITAMIN D2) 50,000 UNIT CAPSULE PO SCH (09:49)
[2017-12-16] MEDS: POLYETHYLENE GLYCOL 3350 17 GM POWD.PACK PO SCH (12:03)
[2017-12-17] MEDS: FAMOTIDINE 20 MG TABLET PO SCH (06:05)
[2017-12-17] MEDS: ASPIRIN EC 81 MG TABLET.DR PO SCH (09:33)
[2017-12-17] MEDS: LISINOPRIL 5 MG TABLET PO SCH (09:33)
[2017-12-17] MEDS: CALCIUM/VIT D 500MG/200IU TABLET PO SCH ×2 (09:33→19:55)
[2017-12-17] MEDS: SERTRALINE HCL 50 MG TABLET PO SCH (09:34)
[2017-12-17] MEDS: ACETAMINOPHEN 325 MG TABLET PO SCH ×4 (09:38→19:55)
[2017-12-17] MEDS: CELECOXIB 100 MG CAPSULE PO SCH (09:39)
[2017-12-17] MEDS: POLYETHYLENE GLYCOL 3350 17 GM POWD.PACK PO SCH (11:46)
[2017-12-18] MEDS: CYCLOBENZAPRINE HCL 5 MG TABLET PO PRN (02:44)
[2017-12-18] MEDS: FAMOTIDINE 20 MG TABLET PO SCH (06:11)
[2017-12-18 09:28] VITALS: BP 123/74
[2017-12-18] MEDS: ACETAMINOPHEN 325 MG TABLET PO SCH (10:22)
[2017-12-18] MEDS: ASPIRIN EC 81 MG TABLET.DR PO SCH (10:22)
[2017-12-18] MEDS: CALCIUM/VIT D 500MG/200IU TABLET PO SCH (10:23)
[2017-12-18] MEDS: SERTRALINE HCL 50 MG TABLET PO SCH (10:23)
[2017-12-18] MEDS: LISINOPRIL 5 MG TABLET PO SCH (10:23)
[2017-12-18] MEDS: CELECOXIB 100 MG CAPSULE PO SCH (10:23)
[2017-12-18] MEDS: POLYETHYLENE GLYCOL 3350 17 GM POWD.PACK PO SCH (12:15)
--- NOTE | 2017-12-20 14:57 | Discharge Summary ---
Discharge Summary - Discharge Sumary History of Present Illness: Patient was trying on pants on 11-09-17 when her foot got stuck in the pants and she fell. She suffered a closed fracture of the left superior pubic rami. She was admitted to [facility]. Evaluation by Dr. Boyd in orthopedics and surgery deemed not necessary. Narcotics have caused her to have confusion and hallucination. She is currently using tylenol for pain with tramadol sparingly for breakthrough pain. She was too weak and unable to return home. She will be admitted to [facility] to continue PT/OT> Condition at Discharge: Stable Home Medications: Ambulatory Orders Medication Instructions Recorded Carbidopa/Levodopa [Sinemet] 1 each PO TID u2 12/30/14 Aspirin [Adult Low Dose Aspirin EC] 81 mg PO D 03/16/16 Lisinopril 2.5 mg PO D 03/16/16 Ascorbic Acid [Vitamin C] 1,000 mg PO DAILY 11/14/17 Dicyclomine HCl [Bentyl] 10 mg PO QID 11/14/17 Hypromellose [Genteal] 1 drop OP TID PRN 11/14/17 Acetaminophen [Tylenol] 650 mg PO QID tablet 12/15/17 Bisacodyl [Dulcolax] 10 mg PO DAILY PRN tablet. 12/15/17 Calcium Carb 500/Vit D 200 1 each PO BID tablet 12/15/17 [CALTRATE WITH VIT D] Ergocalciferol (Vitamin D2) 50,000 unit PO WEEK #4 capsule 12/15/17 [Vitamin D-2] Sertraline HCl [Zoloft] 75 mg PO DAILY #45 tablet 12/15/17 Tizanidine HCl [Zanaflex] 4 mg PO Q8H PRN #40 capsule 12/15/17 Consultations this Visit: Other (Orthopedics) Procedures this Visit: None Allergies/Adverse Reactions: Allergies Allergy/AdvReac Type Severity Reaction Status Date / Time iodine [Iodine] Allergy Intermediate Verified 09/11/17 13:17 cephalexin monohydrate Allergy Mild Verified 09/11/17 13:17 [From Keflex] codeine phosphate Allergy Mild Verified 09/11/17 13:17 [From Robitussin A-C] guaifenesin Allergy Mild Verified 09/11/17 13:17 [From Robitussin A-C] hydrocortisone Allergy Mild Verified 09/11/17 13:17 [From Cortizone-10] Penicillins Allergy Mild Rash Verified 09/11/17 13:17 Sulfa (Sulfonamide Allergy Verified 11/14/17 13:59 Antibiotics) Discharge Summary: Patient was admited with B superior pubic rami fx and a L inferior pubic rami fx. She had worsening pain after getting into bed one day. Xrays were taken that showed separation of fracture site. At the request of her orthopedic Dr. Boyd, she was sent to [facility] to see trauma ortho. They still recommended no surgery and she returned to [facility] for more PT/OT. Pain was tolerated with tylenol. She had problems with depression and had some crying episodes. We increased zoloft to 50 mg and then to 75 mg on d/c. She was discharged home in stable condition. Hospital Course: Discharge Dx: B pubic rami fx. HTN. Anxiety/Depression. Disposition: HOme with home health
== END 2017-12-18 12:25 | disposition home or self-care (01) | DRG 948 ==
LOC: SOUTH 13:48
PROVIDERS: ADMIT Family Medicine; ATTEND Family Medicine
DX: R53.1 Weakness (principal); S32.512D Fracture of superior rim of left pubis, subsequent encounter for fracture with routine healing; G20 Parkinson's disease; I10 Essential (primary) hypertension
CPT/HCPCS: 72170; J1650

== ENCOUNTER 2017-12-21 09:57 | Emergency (ER) | payer MEDICARE ==
[2017-12-21 10:59] LABS: APPEARANCE,URINE CLOUDY (CLEAR); COLOR,URINE YELLOW (YELLOW); OCCULT BLOOD,URINE 2+ (NEGATIVE); PH URINE 6.5 (5.0 - 8.0); UROBILINOGEN URINE 0.2 Eu (0.2-1.0)
--- NOTE | 2017-12-21 11:03 | ED Physician Documentation ---
General Adult - HISTORIAN Historian: patient - HPI Stated Complaint: Lt shoulder/thigh/lower leg pain, s/p pelvic Fx 6 wks prior- fall Chief Complaint: General Adult Onset: days ago Timing: still present Severity: moderate Further Comments: yes (Pt is a 72 yo female who suffered pelvic fracture 6 weeks ago after a fall. Pt has continued to c/o hip pain and L thigh pain. Pt , who started using a walker after her hip fx, now also c/o L shoulder pain and foot pain. Pt complains that her feet are cold. Pt was seen by pcp and by ortho. Pelvic fx has not been healing well, but there may be little redress per ortho. Pt was to be seen by ortho this am, but did not feel well enough to go to [place]. Pt has a new appointment with ortho on next week. Pt has also been having urinary frequency and was rx'd ativan for anxiety. Pt appears anxious in ER with numerous complaints. Pt also recently learned that one of her daughters was dx'd with breast cancer, adding to the pt's distress.) - ROS CONST: other (hurts all over) EYES/ENT: none CVS/RESP: none GI/: none MS/SKIN/LYMPH: other (L upper extremity/shoulder pain; hip pain; L thigh pain; L foot pain) NEURO/PSYCH: anxiety - PAST HX Past History: other (HTN, HLD, Parkinsonism, GERD, colon polyps (with colectomy) , uterine cancer (with hysterectomy & BSO), anxiety/depression.) Surgeries/Procedures: cholecystectomy, hysterectomy (w BSO), other (appendectomy , colectomy) Allergies/Adverse Reactions: Allergies Allergy/AdvReac Type Severity Reaction Status Date / Time iodine [Iodine] Allergy Intermediate Verified 12/21/17 10:47 cephalexin monohydrate Allergy Mild Verified 12/21/17 10:47 [From Keflex] codeine phosphate Allergy Mild Verified 12/21/17 10:47 [From Robitussin A-C] guaifenesin Allergy Mild Verified 12/21/17 10:47 [From Robitussin A-C] hydrocortisone Allergy Mild Verified 12/21/17 10:47 [From Cortizone-10] Penicillins Allergy Mild Rash Verified 12/21/17 10:47 Sulfa (Sulfonamide Allergy Verified 12/21/17 10:47 Antibiotics) Home Medications: Ambulatory Orders Medication Instructions Recorded Carbidopa/Levodopa [Sinemet] 1 each PO TID u2 12/30/14 Aspirin [Adult Low Dose Aspirin EC] 81 mg PO D 03/16/16 Lisinopril 2.5 mg PO D 03/16/16 Ascorbic Acid [Vitamin C] 1,000 mg PO DAILY 11/14/17 Dicyclomine HCl [Bentyl] 10 mg PO QID 11/14/17 Hypromellose [Genteal] 1 drop OP TID PRN 11/14/17 Acetaminophen [Tylenol] 650 mg PO QID tablet 12/15/17 Bisacodyl [Dulcolax] 10 mg PO DAILY PRN tablet. 12/15/17 Calcium Carb 500/Vit D 200 1 each PO BID tablet 12/15/17 [CALTRATE WITH VIT D] Ergocalciferol (Vitamin D2) 50,000 unit PO WEEK #4 capsule 12/15/17 [Vitamin D-2] Sertraline HCl [Zoloft] 75 mg PO DAILY #45 tablet 12/15/17 Tizanidine HCl [Zanaflex] 4 mg PO Q8H PRN #40 capsule 12/15/17 Azithromycin [Zithromax] 250 mg PO DAILY #5 tablet 12/21/17 - SOCIAL HX Smoking History: non-smoker - FAMILY HX Family History: Yes (Mother: CAD; Father: CAD.) - VITAL SIGNS Vital Signs: Vital Signs Temp Pulse Resp BP Pulse Ox 98.2 F 92 H 20 122/57 98 12/21/17 09:58 12/21/17 09:58 12/21/17 09:58 12/21/17 09:58 12/21/17 09:58 - REVIEWED ASSESSMENTS Nursing Assessment Reviewed: Yes Vitals Reviewed: Yes Progress - Progress Progress: u/a - pos nitrites, 3+ leukocytes, 2+ blood d/w pcp, Dr. Moreno. Pt has been rx'd Ativan and has this at home. Ortho is aware of pt poorly healing pelvic fx. Pt will f/u ortho next week. Tx uti. Azithromycin 500 mg po in ER Rx Azithromycin 250 po qd x 5 days, start tomorrow. ED Results Lab/Radiology - Lab Results Lab Results: Lab Results 12/21/17 10:48 Urine Color Yellow (YELLOW) Urine Appearance Cloudy H (CLEAR) Urine pH 6.5 (5.0 - 8.0) Ur Specific [place] 1.010 (1.010-1.030) Urine Protein Negative mg/dL mg/dL (NEGATIVE) Urine Ketones Negative mg/dL mg/dL (NEGATIVE) Urine Occult Blood 2+ H (NEGATIVE) Urine Nitrite Positive H (NEGATIVE) Urine Bilirubin Negative (NEGATIVE) Urine Urobilinogen 0.2 Eu Eu (0.2-1.0) Ur Leukocyte Esterase 3+ H (NEGATIVE) Urine Glucose Negative mg/dL mg/dL (NEGATIVE) - Orders Orders: ED Orders Category Date Time Status PELVIS AP 1 OR 2 VIEWS [RAD] Stat Exams 12/21/17 Ordered SHOULDER 2 VIEWS OR MORE [RAD] Stat Exams 12/21/17 Ordered UA MACRO DIP ONLY Routine Lab 12/21/17 10:48 Completed URINE CULTURE Routine Lab 12/21/17 10:48 Received General Adult Physical Exam - PHYSICAL EXAM GENERAL APPEARANCE: moderate distress (also with anxiety) EENT: eye inspection normal, pharynx normal NECK: normal inspection, supple RESPIRATORY: no resp distress, chest non-tender, breath sounds normal CVS: reg rate & rhythm, heart sounds normal ABDOMEN: soft, no organomegaly BACK: normal inspection SKIN: warm/dry, normal color EXTREMITIES: other (L shoulder: FROM, able to perform rotator cuff maneuvers; L hip, thigh tenderness; L foot, no inflammation, strong pulses.) NEURO: oriented X3, motor nml, sensation nml, other (anxious) Discharge Clincal Impression: L shoulder pain, recent hip fracture UTI (urinary tract infection) Qualifiers: Urinary tract infection type: site unspecified Hematuria presence: with hematuria Qualified Code(s): N39.0 - Urinary tract infection, site not specified Prescriptions: Azithromycin [Zithromax] 250 mg PO DAILY #5 tablet Referrals: Scarlett Moreno MD [Primary Care Provider] - Condition: Stable Disposition: 01 HOME, SELF-CARE Decision to Admit: NO Decision Time: 12:37
[2017-12-21] MEDS: AZITHROMYCIN 250 MG TABLET PO ONE (12:40)
[2017-12-21 14:13] VITALS: BP 124/62
--- NOTE | 2017-12-22 07:09 | Diagnostic Imaging Report ---
JOSEFA SALMERON [facility] [address] Pending Sale To [facility] [address] [place], [place]. [address] Report Submission Date: Dec 21, 2017 11:59:53 AM CDT Patient Study Name: TIMOTHY LOCKETT Date: Dec 21, 2017 11:20:38 AM CDT Modality Type: DX Gender: F Description: PELVIS : 41 Institution: [facility] Physician: JOSEFA SALMERON Examination: Plain film pelvis History: PELVIS, LEFT SIDED PELVIC PAIN, FALL X6 WEEKS AGO WITH HX OF PELVIC FRACTURE (Hx) Comparison exams: 21 November 2017 Findings: Single view of the pelvis demonstrates osteopenia. Fractures involving the medial superior and inferior left pubic rami - limited crossing trabecula. Cortical disruption involving the right pubic symphysis - limited crossing trabecula. New lucency right inferior pubic rami. Remaining cortical margins without overt disruption. Articular degenerative changes including sacroiliac joints and lumbar spine. Pelvic surgical clips. Impression: Fractures involving the left superior and inferior rami and right pubic symphysis/inferior pubic rami - limited, if any, evidence for healing. Osteopenia and degenerative changes. Electronically signed on Dec 21, 2017 11:59:53 AM CDT by: Rober MAYS
--- NOTE | 2017-12-22 07:10 | Diagnostic Imaging Report ---
JOSEFA SALMERON [facility] [address] [facility] [address] [address] Report Submission Date: Dec 21, 2017 11:47:46 AM CDT Patient Study Name: TIMOTHY LOCKETT Date: Dec 21, 2017 11:14:24 AM CDT Modality Type: DX Gender: F Description: SHOULDER : 41 Institution: [facility] Physician: JOSEFA SALMERON Examination: Plain film left shoulder History: LEFT SHOULDER, PAIN IN LEFT SHOULDER AFTER FALL X6 WEEKS AGO (Hx) Comparison exams: None provided Findings: 3 views of the left shoulder demonstrates diffuse osteopenia. articular degenerative changes. No evidence for fracture. Slight inferior displacement of the humeral head with relation to the glenoid. Mild acromioclavicular joint degenerative changes. No soft tissue abnormality Impression: Osteopenia and degenerative changes. Slight inferior displacement of the humeral head with relation to the glenoid - could be secondary to large joint effusion or ligament abnormality. Consider MRI shoulder to further evaluate. Electronically signed on Dec 21, 2017 11:47:46 AM CDT by: Rober MAYS
== END 2017-12-21 12:45 | disposition home or self-care (01) ==
LOC: ED 09:57
DX: M25.512 Pain in left shoulder (principal); N39.0 Urinary tract infection, site not specified; S72.90XA Unspecified fracture of unspecified femur, initial encounter for closed fracture; W19.XXXA Unspecified fall, initial encounter; Y92.9 Unspecified place or not applicable
CPT/HCPCS: 72170; 73030; 81002; 87086; 87186; 99284

== ENCOUNTER 2018-01-11 13:56 | Emergency (ER) | payer MEDICARE ==
--- NOTE | 2018-01-11 14:03 | ED Physician Documentation ---
Fall - HISTORIAN Historian: patient (HTN, Anxiety, parkinsons ) - HPI Stated Complaint: fall Chief Complaint: Fall Onset: just prior to arrival Where: home Context: slipped, lost balance Associated Symptoms:: no loss of consciousness Location of Pain/Injury: head, chest Injury to Right Extremity: hip, knee Injury to Left Extremity: hip Further Comments: yes (She states she was trying to get to the bathroom and she fell . She states she has a fractured hip but she did choose no surgical intervention. she states she did fall and hit her head . States she remembers it all. she has pain in the right knee and both hips are hurting and chest pain with the fall. she states she has some relief with her med .) - ROS CONST: no problems NEURO: anxiety. denies: dizziness MS/SKIN/LYMPH: denies: weakness, numbness, neck pain, back pain EYES/ENT: none CVS/RESP: chest pain GI/: denies: nausea, vomiting - PAST HX Past History: other Immunizations: UTD Allergies/Adverse Reactions: Allergies Allergy/AdvReac Type Severity Reaction Status Date / Time iodine [Iodine] Allergy Intermediate Verified 01/11/18 14:00 cephalexin monohydrate Allergy Mild Verified 01/11/18 14:00 [From Keflex] codeine phosphate Allergy Mild Verified 01/11/18 14:00 [From Robitussin A-C] guaifenesin Allergy Mild Verified 01/11/18 14:00 [From Robitussin A-C] hydrocortisone Allergy Mild Verified 01/11/18 14:00 [From Cortizone-10] Penicillins Allergy Mild Rash Verified 01/11/18 14:00 Sulfa (Sulfonamide Allergy Verified 01/11/18 14:00 Antibiotics) Home Medications: Ambulatory Orders Medication Instructions Recorded Carbidopa/Levodopa [Sinemet] 1 each PO TID u2 12/30/14 Ascorbic Acid [Vitamin C] 1,000 mg PO DAILY 11/14/17 Dicyclomine HCl [Bentyl] 10 mg PO QID 11/14/17 Acetaminophen [Tylenol] 650 mg PO QID tablet 12/15/17 Calcium Carb 500/Vit D 200 1 each PO BID tablet 12/15/17 [CALTRATE WITH VIT D] Ergocalciferol (Vitamin D2) 50,000 unit PO WEEK #4 capsule 04/13/18 [Vitamin D-2] - SOCIAL HX Smoking History: non-smoker Alcohol Use: none Drug Use: none - FAMILY HX Family History: none - VITAL SIGNS Vital Signs: Vital Signs Temp Pulse Resp BP Pulse Ox 124/62 12/21/17 14:11 - REVIEWED ASSESSMENTS Nursing Assessment Reviewed: Yes Vitals Reviewed: Yes Progress - Progress Progress: 1533: pt aware we are awaiting CT of brain results for pain med. she states she is tolerating pain "ok" if she stays still . DG 1600: discussed CT of brain without injury . She has pain 8/10 . "all over" She states she is very anxious. DG 1656: Notified of compare read. she is sleeping - wakes easily - states pain is "better" . Toire (daughter) was notified at pt request. She will take pt home. DG ED Results Lab/Radiology - Radiology Radiology Impressions: Examination: CT head without contrast History: CT HEAD W/O, PAIN IN HEAD AFTER FALL TODAY (Hx) Comparison exam: None available Technique: Noncontrast head CT protocol. Findings: Ventricles and sulci are prominent. Cerebrocerebellar parenchyma demonstrates periventricular low attenuation consistent with small vessel disease. No evidence for parenchymal hemorrhage. No evidence for mass or mass effect. No midline shift. No extra axial fluid collections. Partial visualization of the paranasal sinuses, mastoid air cells, orbits, skull and scalp without gross irregularity. Streak artifact from dental hardware. Impression: Advanced age related changes. No acute parenchymal process. No hemorrhage. Electronically signed on January 11, 2018 3:57:07 PM CDT by: Rober Reyez Examination: CT chest History: CT CHEST W/O, CHEST PAIN AFTER FALL TODAY (Hx) Comparison exams: None available Technique: CT chest without contrast protocol Findings: Emphysematous changes. Dependent atelectasis and scarring. Posterior pleural thickening. Anterior mediastinum and kerry are without gross mass or pathologic adenopathy: though sensitivity is reduced on a noncontrast exam. Thoracic aorta with minimal peripheral atherosclerotic disease. No aneurysm. Cardiac silhouette prominent. No pericardial effusion. Lower neck structures and upper abdominal organs are without gross abnormality. Degenerative changes and kyphosis involving the thoracic spine. No obvious rib abnormality. Impression: Emphysematous changes and scarring. No evidence for pulmonary contusion or pneumothorax. Thoracic kyphosis and degenerative changes. No compression deformity. Electronically signed on January 11, 2018 4:05:50 PM CDT by: Rober Reyez Examination: CT pelvis. History: CT PELVIS, PELVIC PAIN AFTER FALL TODAY, HX OF PELVIC FX, PRIOR PELVIC XRAYS FROM 12/21/17 AND 11/21/17 (Hx) Comparison exams: None provided. Technique: Axial imaging was sagittal and coronal reconstruction. Findings: Lucency involving the left aspect of the sacrum. Complex fractures involving both the right and left superior/inferior pubic rami. Hip articulations without cortical irregularity. No dislocation. Iliac wings are within normal limits. Degenerative changes of the lumbar vertebral bodies. Soft tissue hematoma surrounding the left pubic rami fracture. Intrapelvic structures within normal limits. No free fluid collection. Impression: Fractures involving the right and left superior/inferior pubic rami. Left sacral fracture. Soft tissue hematoma surrounding the left pubic rami fracture. No evidence for intra-pelvic free fluid collection. Articular degenerative changes. Electronically signed on January 11, 2018 4:17:22 PM CDT by: Rober Reyez Examination: CT pelvis. History: CT PELVIS, PELVIC PAIN AFTER FALL TODAY, HX OF PELVIC FX, PRIOR PELVIC XRAYS FROM 12/21/17 AND 11/21/17 (Hx) Comparison exams: None provided. Technique: Axial imaging was sagittal and coronal reconstruction. Findings: Lucency involving the left aspect of the sacrum. Complex fractures involving both the right and left superior/inferior pubic rami. Hip articulations without cortical irregularity. No dislocation. Iliac wings are within normal limits. Degenerative changes of the lumbar vertebral bodies. Soft tissue hematoma surrounding the left pubic rami fracture. Intrapelvic structures within normal limits. No free fluid collection. Impression: Fractures involving the right and left superior/inferior pubic rami. Left sacral fracture. Soft tissue hematoma surrounding the left pubic rami fracture. No evidence for intra-pelvic free fluid collection. Articular degenerative changes. Electronically signed on January 11, 2018 4:17:22 PM CDT by: Rober Reyez Plain film dated 21 December 2017 now available for comparison. Fractures of the right and left superior/inferior pubic rami were present on previous examination. Left sacral fracture also present on previous examination. Addendum electronically signed by Rober Reyez on January 11, 2018 4:29:38 PM CDT Examination: Plain film knees History: BILAT KNEES, BILATERAL KNEE PAIN AFTER FALL TODAY, RT WORSE THAN LEFT. CROSS TABLE LATERALS OBTAINED DUE TO PATIENTS ABILITY (Hx) Findings: 3 views of the right and left knee demonstrates diffuse osteopenia. Tibial spine and patellar spurring. Joint space narrowing. No cortical disruption. No joint effusion. Impression: Osteopenia and degenerative changes. No acute appearing osseous abnormality. Electronically signed on January 11, 2018 3:59:28 PM CDT by: Rober Black Physical Exam - Physical Exam General Appearance: alert, mild distress (crying - she states she is scared she broke her hip ) Head: no swelling (she does have pain with palpation on right lateral side of her forehead ), no obvious injury Neck: non-tender, painless ROM Eye: EMILY ENT: nml external inspection, no dental injury, no oral injury, airway nml Resp/CVS: breath sounds nml, no resp. distress, heart sounds nml, other (Pain with palpation on right side of chest ). No: rib tenderness Abdomen: soft, no organomegaly, no distension, non-tender Neuro: oriented x3, CN's nml as tested, sensation nml, motor nml, mood/affect nml, stock saw operator nml, reflexes nml, stock saw operator symmetrical Skin: color nml, no rash Back: normal inspection Extremities: atraumatic, pelvis stable, hips non-tender, no pedal edema, other ( right knee with swelling pain with palpation ) - [place] Coma Score Eyes Open: Spontaneous Speech: Oriented Motor: Obeys Commands Discharge Clincal Impression: Fracture of left superior pubic ramus Qualifiers: Encounter type: subsequent encounter Fracture type: closed Fracture healing: with routine healing Qualified Code(s): S32.512D - Fracture of superior rim of left pubis, subsequent encounter for fracture with routine healing Fracture of right superior pubic ramus Qualifiers: Encounter type: subsequent encounter Fracture type: closed Fracture healing: with routine healing Qualified Code(s): S32.511D - Fracture of superior rim of right pubis, subsequent encounter for fracture with routine healing Fall Qualifiers: Encounter type: initial encounter Qualified Code(s): W19.XXXA - Unspecified fall, initial encounter Referrals: Scarlett Moreno MD [Primary Care Provider] - 2 Days Comments: 1. No new fractures per scan. - keep follow up with PCP as previously scheduled 2. Meds as prescribed 3. Rest 4. Return to ER for any increasing or non controlled pain or other concerns Condition: Stable Disposition: 01 HOME, SELF-CARE Decision to Admit: NO Date of Decison to Admit: 01/11/18 Decision Time: 16:58
[2018-01-11 15:46] LABS: BASOPHILS % 0.3 (0.0-1.5); EOSINOPHILS % 1.5 % (0.0-6.8); MEAN CORPUSCULAR VOLUME 88.7 fl (80.0-100.0); MONOCYTES % 5.6 % (0.0-11.0); NEUTROPHILS # 2.5 # k/uL (1.4-7.7)
[2018-01-11 15:55] LABS: eGFR (African) > 60; eGFR (Non-African) > 60
[2018-01-11] MEDS ORDERED: fentaNYL CITRATE/PF 100 MCG/ 2ML AMP IVP ONE (16:06)
[2018-01-11 18:02] VITALS: BP 123/74
--- NOTE | 2018-01-11 18:46 | Diagnostic Imaging Report ---
ARIS DAMON [facility] [id number] [facility] [address] [place], [place]. [address] Report Submission Date: January 11, 2018 3:57:07 PM CDT Patient Study Name: TIMOTHY LOCKETT Date: January 11, 2018 2:45:02 PM CDT Modality Type: CT\SR Gender: F Description: CT BRAIN W/O CONTRAST : 41 Institution: [facility] Physician: ARIS DAMON Examination: CT head without contrast History: CT HEAD W/O, PAIN IN HEAD AFTER FALL TODAY (Hx) Comparison exam: None available Technique: Noncontrast head CT protocol. Findings: Ventricles and sulci are prominent. Cerebrocerebellar parenchyma demonstrates periventricular low attenuation consistent with small vessel disease. No evidence for parenchymal hemorrhage. No evidence for mass or mass effect. No midline shift. No extra axial fluid collections. Partial visualization of the paranasal sinuses, mastoid air cells, orbits, skull and scalp without gross irregularity. Streak artifact from dental hardware. Impression: Advanced age related changes. No acute parenchymal process. No hemorrhage. Electronically signed on January 11, 2018 3:57:07 PM CDT by: Rober MAYS
--- NOTE | 2018-01-11 18:47 | Diagnostic Imaging Report ---
ARIS DAMON [facility] [address] [facility] [address] [place], [place]. [address] Report Submission Date: January 11, 2018 4:05:50 PM CDT Patient Study Name: TIMOTHY LOCKETT Date: January 11, 2018 2:48:23 PM CDT Modality Type: CT\SR Gender: F Description: CT CHEST W/O CONTRAST : 41 Institution: [facility] Physician: ARIS DAMON Examination: CT chest History: CT CHEST W/O, CHEST PAIN AFTER FALL TODAY (Hx) Comparison exams: None available Technique: CT chest without contrast protocol Findings: Emphysematous changes. Dependent atelectasis and scarring. Posterior pleural thickening. Anterior mediastinum and kerry are without gross mass or pathologic adenopathy: though sensitivity is reduced on a noncontrast exam. Thoracic aorta with minimal peripheral atherosclerotic disease. No aneurysm. Cardiac silhouette prominent. No pericardial effusion. Lower neck structures and upper abdominal organs are without gross abnormality. Degenerative changes and kyphosis involving the thoracic spine. No obvious rib abnormality. Impression: Emphysematous changes and scarring. No evidence for pulmonary contusion or pneumothorax. Thoracic kyphosis and degenerative changes. No compression deformity. Electronically signed on January 11, 2018 4:05:50 PM CDT by: Rober MAYS
--- NOTE | 2018-01-11 18:47 | Diagnostic Imaging Report ---
ARIS DAMON [facility] [address] [facility] [address] [place], [place]. [address] Report Submission Date: January 11, 2018 3:59:28 PM CDT Patient Study Name: TIMOTHY LOCKETT Date: January 11, 2018 3:02:28 PM CDT Modality Type: DX Gender: F Description: LOWER EXTREMITY : 41 Institution: [facility] Physician: ARIS DAMON Examination: Plain film knees History: BILAT KNEES, BILATERAL KNEE PAIN AFTER FALL TODAY, RT WORSE THAN LEFT. CROSS TABLE LATERALS OBTAINED DUE TO PATIENTS ABILITY (Hx) Findings: 3 views of the right and left knee demonstrates diffuse osteopenia. Tibial spine and patellar spurring. Joint space narrowing. No cortical disruption. No joint effusion. Impression: Osteopenia and degenerative changes. No acute appearing osseous abnormality. Electronically signed on January 11, 2018 3:59:28 PM CDT by: Rober MAYS
--- NOTE | 2018-01-11 18:47 | Diagnostic Imaging Report ---
ARIS DAMON [facility] [address] [facility] [address] [place], [place]. [address] Report Submission Date: January 11, 2018 4:17:22 PM CDT Patient Study Name: TIMOTHY LOCKETT Date: January 11, 2018 2:52:09 PM CDT Modality Type: CT\SR Gender: F Description: CT PELVIS W/O CONTRAST : 41 Institution: [facility] Physician: ARIS DAMON Examination: CT pelvis. History: CT PELVIS, PELVIC PAIN AFTER FALL TODAY, HX OF PELVIC FX, PRIOR PELVIC XRAYS FROM 12/21/17 AND 11/21/17 (Hx) Comparison exams: None provided. Technique: Axial imaging was sagittal and coronal reconstruction. Findings: Lucency involving the left aspect of the sacrum. Complex fractures involving both the right and left superior/inferior pubic rami. Hip articulations without cortical irregularity. No dislocation. Iliac wings are within normal limits. Degenerative changes of the lumbar vertebral bodies. Soft tissue hematoma surrounding the left pubic rami fracture. Intrapelvic structures within normal limits. No free fluid collection. Impression: Fractures involving the right and left superior/inferior pubic rami. Left sacral fracture. Soft tissue hematoma surrounding the left pubic rami fracture. No evidence for intra-pelvic free fluid collection. Articular degenerative changes. Electronically signed on January 11, 2018 4:17:22 PM CDT by: Rober Reyez Plain film dated 21 December 2017 now available for comparison. Fractures of the right and left superior/inferior pubic rami were present on previous examination. Left sacral fracture also present on previous examination. Addendum electronically signed by Rober Reyez on January 11, 2018 4:29:38 PM CDT MTDD
== END 2018-01-11 17:45 | disposition home or self-care (01) ==
LOC: ED 13:56
DX: S32.512D Fracture of superior rim of left pubis, subsequent encounter for fracture with routine healing (principal); S32.511D Fracture of superior rim of right pubis, subsequent encounter for fracture with routine healing; W19.XXXD Unspecified fall, subsequent encounter; Y92.002 Bathroom of unspecified non-institutional (private) residence as the place of occurrence of the external cause
CPT/HCPCS: 70450; 71250; 72192; 73562; 80053; 85025; J3010; 96374; 99284; S1016

== ENCOUNTER 2018-08-10 15:36 | Outpatient (CLI) | payer MEDICARE | END 2018-08-10 15:44 | LOC: LABRHC 15:36 | PROVIDERS: ATTEND Physician Assistant | DX: R30.0 Dysuria (principal); B96.89 Other specified bacterial agents as the cause of diseases classified elsewhere; Z16.24 Resistance to multiple antibiotics | CPT/HCPCS: 87086 ==

== ENCOUNTER 2018-12-06 14:53 | Outpatient (CLI) | payer MEDICARE | END 2018-12-06 14:55 | LOC: LAB 14:53 | PROVIDERS: ATTEND Family Medicine | DX: R30.0 Dysuria (principal) | CPT/HCPCS: 87086 ==

== ENCOUNTER 2019-03-19 16:43 | Outpatient (CLI) | payer MEDICARE | END 2019-03-19 16:45 | LOC: LABRHC 16:43 | PROVIDERS: ATTEND Family Medicine | DX: Z85.43 Personal history of malignant neoplasm of ovary (principal) | CPT/HCPCS: 86304 ==

== ENCOUNTER 2019-04-10 15:48 | Outpatient (CLI) | payer MEDICARE | END 2019-04-10 15:50 | LOC: LABRHC 15:48 | PROVIDERS: ATTEND Family Medicine | DX: E55.9 Vitamin D deficiency, unspecified (principal) | CPT/HCPCS: 82306 ==